=== PATIENT | female | born 1995 | race American Indian/Alaskan Native ===

== ENCOUNTER 2023-04-06 14:12 | Emergency (ER) | payer MEDICAID ==
[~2023-04-06] VITALS: Ht 157.5 cm; Wt 43.7 kg
[2023-04-06 14:28] VITALS: BP 116/54; PULSE 84; RESP 18; O2SAT 100
[2023-04-06] MEDS ORDERED: ONDANSETRON HCL 4 MG/2 ML VIAL IM ONE (14:30)
[2023-04-06] MEDS ORDERED: PROMETHAZINE HCL 25 MG/ML 1ML IM ONE (15:00)
[2023-04-06] MEDS ORDERED: SODIUM CHLORIDE 0.9% 2,000 ML IV ONE (15:00)
[2023-04-06 15:25] LABS: Basophils # (auto) 0 10 ^3/uL (0-0.2); Basophils % (auto) 0.5 % (0.0-2.0); Eosinophils # (auto) 0 10 ^3/uL (0-0.8); Eosinophils % (auto) 0.4 % (0.0-7.0); Hematocrit 38.4 % (36.0-46.0); Hemoglobin 13.3 g/dL (12.2-16.2); Lymphocytes # (auto) 2.2 10 ^3/uL (0.4-5.4); Lymphocytes % (auto) 23.5 % (10.0-50.0); Mean Corpuscular Hemoglobin 29.9 pg (28.0-32.0); Mean Corpuscular Hgb Conc. 34.5 g/dL (32.0-36.0); Mean Corpuscular Volume 86.6 fL (80.0-100.0); Monocytes # (auto) 0.8 10 ^3/uL (0-1.3); Monocytes % (auto) 8.2 % (0.0-12.0); Neutrophils # (auto) 6.4 10 ^3/uL (1.6-8.6); Neutrophils % (auto) 67.4 % (37.0-80.0); Red Blood Cells 4.44 10^6/uL (4.0-5.20); Red Cell Distribution Width 13.4 % (11.8-14.3); White Blood Cell 9.4 10^3/uL (4.4-10.8)
[2023-04-06 15:29] LABS: Urine Bacteria NONE SEEN /hpf (None Seen); Urine Blood Negative /uL (Negative); Urine Clarity HAZY (Clear); Urine Color Yellow (Yellow); Urine Mucus FEW (None Seen); Urine Protein, UAD TRACE (Negative); Urine Specific Gravity 1.022 (1.001-1.035); Urine WBC 13 /hpf (0 - 5)
[2023-04-06 15:45] LABS: Alanine Aminotransferase 14 U/L (7-40); Albumin 4.1 g/dL (3.2-4.8); Alkaline Phosphatase 33 U/L (46-116); Anion Gap 8 (5-15); Aspartate Aminotransferase 9 U/L (13-40); BUN/Creatinine Ratio 15.9 (10.0-20.0); Blood Urea Nitrogen 7 mg/dL (9-23); Calcium 9.3 mg/dL (8.5-10.1); Carbon Dioxide 22 mmol/L (20-30); Chloride 106 mmol/L (98-107); Glucose 109 mg/dL (74-106); Potassium 3.4 mmol/L (3.5-5.1); Sodium 136 mmol/L (136-145)
[2023-04-06 15:46] LABS: Bilirubin, Total 0.9 mg/dL (0.2-1.0); Total Protein 6.1 g/dL (5.7-8.2)
[2023-04-06] MEDS ORDERED: CEPHALEXIN 250 MG CAP PO ONE (16:30)
== END 2023-04-06 19:19 | disposition left against medical advice (07) ==
LOC: ER 14:12
DX: R11.2 Nausea with vomiting, unspecified (principal); R10.2 Pelvic and perineal pain; Z53.21 Procedure and treatment not carried out due to patient leaving prior to being seen by health care provider
CPT/HCPCS: 36415; 80053; 81001; 83605; 84702; 85025

== ENCOUNTER 2023-07-20 10:34 | Observation (INO) | payer MEDICAID ==
[2023-07-20 13:50] LABS: Vaginal Bacteria Moderate; Vaginal Epithelial Cells Moderate; Vaginal Trichomonas Not Present
[2023-07-20 13:51] LABS: Vaginal Clue Cells None Seen
[2023-07-20 14:03] LABS: Rapid Influenza A Negative (Negative); Rapid Influenza B Negative (Negative)
[2023-07-20 14:08] LABS: COVID19 ANTIGEN SOFIA FIA POSITIVE (NEGATIVE)
== END 2023-07-20 14:31 | disposition home or self-care (01) ==
LOC: LDRP 10:34 → UNDOADMOB 10:34 → LDRP 11:49
PROVIDERS: ADMIT Obstetrics & Gynecology; ATTEND Obstetrics & Gynecology
DX: O98.512 Other viral diseases complicating pregnancy, second trimester (principal); U07.1 COVID-19; O34.62 Maternal care for abnormality of vagina, second trimester; N89.8 Other specified noninflammatory disorders of vagina; Z3A.27 27 weeks gestation of pregnancy
CPT/HCPCS: 36415; 81002; 87210; 87426; 87804; 94760; G0378

== ENCOUNTER 2023-07-20 14:43 | Emergency (ER) | payer MEDICAID ==
[~2023-07-20] VITALS: Ht 157.5 cm; Wt 54.6 kg
[2023-07-20 15:37] VITALS: BP 131/79; PULSE 100; RESP 16; TEMP 99.8; O2SAT 97
== END 2023-07-20 15:41 | disposition home or self-care (01) ==
LOC: ER 14:46
DX: Z02.79 Encounter for issue of other medical certificate (principal); U07.1 COVID-19

== ENCOUNTER 2023-08-11 09:59 | Observation (INO) | payer MEDICAID ==
[~2023-08-11] VITALS: Ht 157.5 cm; Wt 54.4 kg
[2023-08-11] MEDS: ONDANSETRON HCL 4 MG/2 ML VIAL IV ONE (10:44)
[2023-08-11] MEDS: ceFAZolin 2 GM/D5W50ml 50 ML IV ONE (10:44)
[2023-08-11] MEDS: LACTATED RINGER'S 1,000 ML IV ONE (10:44)
[2023-08-11] MEDS ORDERED: PREN-96 PO (11:13)
[2023-08-11 11:20] VITALS: TEMP 99.7
[2023-08-11] MEDS: ACETAMINOPHEN 500 MG TAB PO ONE (11:20)
== END 2023-08-11 14:00 | disposition home or self-care (01) ==
LOC: LDRP 09:59
PROVIDERS: ADMIT Obstetrics & Gynecology; ATTEND Obstetrics & Gynecology
DX: O21.2 Late vomiting of pregnancy (principal); O26.893 Other specified pregnancy related conditions, third trimester; R19.7 Diarrhea, unspecified; R10.2 Pelvic and perineal pain; Z3A.30 30 weeks gestation of pregnancy; Z88.1 Allergy status to other antibiotic agents
CPT/HCPCS: 59025; 81002; 94760; 96365; 96375; G0378; J0690; J2405; 96360; 96361; 96374

== ENCOUNTER 2023-10-09 04:04 | Inpatient (IN) | payer MEDICAID ==
[~2023-10-09] VITALS: Ht 157.5 cm; Wt 65.8 kg
[~2023-10-09 04:04] MED LIST: PREN-96 PO
[2023-10-09] MEDS ORDERED: TERBUTALINE SULFATE 1 MG/ML 1ML VIAL SC PRN (04:45)
[2023-10-09] MEDS ORDERED: LIDOCAINE 2%HCL (LOCAL ANESTH.) INJ 20ML MDV IJ PRN (04:45)
[2023-10-09] MEDS ORDERED: LACT. RINGERS/OXYTOCIN 20UNITS 1,000 ML IV SCH (04:45)
[2023-10-09 05:18] LABS: Urine Bacteria FEW /hpf (None Seen); Urine Blood 1+ /uL (Negative); Urine Clarity Clear (Clear); Urine Color Colorless (Yellow); Urine Protein, UAD Negative (Negative); Urine Specific Gravity 1.011 (1.001-1.035); Urine Urobilinogen Normal (Negative); Urine WBC 1 /hpf (0 - 5)
[2023-10-09] MEDS: PHISODERM TOP SOLN 240ML BTL TOP PRN (05:18)
[2023-10-09] MEDS: DERMOPLAST 60ML BOTTLE TOP PRN (05:19)
[2023-10-09] MEDS: WITCH HAZEL-GLYCERIN PAD TOP PRN (05:19)
[2023-10-09 05:25] LABS: Basophils # (auto) 0 10 ^3/uL (0-0.2); Eosinophils # (auto) 0.1 10 ^3/uL (0-0.8); Eosinophils % (auto) 0.7 % (0.0-7.0); Hemoglobin 11.8 g/dL (12.2-16.2); White Blood Cell 12.6 10^3/uL (4.4-10.8)
[2023-10-09 05:27] LABS: Basophils % (auto) 0.3 % (0.0-2.0); Hematocrit 35.6 % (36.0-46.0); Lymphocytes # (auto) 1.9 10 ^3/uL (0.4-5.4); Lymphocytes % (auto) 15.3 % (10.0-50.0); Mean Corpuscular Hemoglobin 26.3 pg (28.0-32.0); Mean Corpuscular Volume 79.8 fL (80.0-100.0); Monocytes # (auto) 1.2 10 ^3/uL (0-1.3); Monocytes % (auto) 9.2 % (0.0-12.0); Neutrophils # (auto) 9.4 10 ^3/uL (1.6-8.6); Neutrophils % (auto) 74.5 % (37.0-80.0); Platelet Count (auto) 231 10^3/uL (140-450); Red Blood Cells 4.46 10^6/uL (4.0-5.20); Red Cell Distribution Width 15.4 % (11.8-14.3)
[2023-10-09] MEDS: LACTATED RINGER'S 1,000 ML IV SCH (05:29)
[2023-10-09 05:39] LABS: Amphetamine Screen, Urine Neg (NEGATIVE); Barbiturate Scree,Urine Neg (NEGATIVE); Benzodiazephine Screen, Urine Neg (NEGATIVE); Cannabinoid Screen, Urine Neg (NEGATIVE); Cocaine Screen, Urine Neg (NEGATIVE); Opiate Scree,Urine Neg (NEGATIVE); Phencyclidine Screen, Urine Neg (NEGATIVE)
[2023-10-09 05:42] LABS: INR 0.87 (0.9-1.15); Partial Thromboplastin Time 25.6 SEC (24.5-34.5); Prothrombin Time 9.3 sec (9.3-11.8)
[2023-10-09 05:43] LABS: Alanine Aminotransferase 13 U/L (7-40); Albumin 3.6 g/dL (3.2-4.8); Alkaline Phosphatase 188 U/L (46-116); Anion Gap 6 (5-15); Aspartate Aminotransferase 14 U/L (13-40); Bilirubin, Total 0.4 mg/dL (0.2-1.0); Blood Urea Nitrogen 8 mg/dL (9-23); Calcium 8.7 mg/dL (8.7-10.4); Carbon Dioxide 21 mmol/L (20-30); Chloride 110 mmol/L (98-107); Glucose 82 mg/dL (74-106); Sodium 137 mmol/L (136-145); Total Protein 6.5 g/dL (5.7-8.2)
[2023-10-09] MEDS ORDERED: ePHEDrine SULFATE 50 MG/ML AMP IV ONE (07:30)
[2023-10-09] MEDS ORDERED: NALOXONE HCL 0.4 MG/ML VIAL IV ONE (07:30)
[2023-10-09] MEDS: LACTATED RINGER'S 1,000 ML IV ONE (07:45)
[2023-10-09] MEDS: ePHEDrine SULFATE 50 MG/ML AMP ONE (07:46)
[2023-10-09] MEDS: fentaNYL CITRATE 100 MCG/2 ML VL ONE (07:46)
[2023-10-09 13:26] LABS: Protein, Urine 7.8 mg/dL (0.0-11.9)
[2023-10-09 13:28] LABS: Creatinine, Urine 20.02 mg/dL (30.0-125.0); Urine Protein/Creatinine Ratio 0.39
[2023-10-09] MEDS: fentaNYL CITRATE 100 MCG/2 ML VL IV ONE (13:49)
[2023-10-09] MEDS: ROPIVACAINE HCL 200 ML ONE (13:50)
[2023-10-09] MEDS ORDERED: ONDANSETRON ODT 4 MG TAB PO PRN (15:15)
[2023-10-09] MEDS: LACT. RINGERS/OXYTOCIN 20UNITS 500 ML IV ONE ×2 (15:36→15:37)
[2023-10-09] MEDS: ACETAMINOPHEN 325 MG TAB PO PRN (15:56)
[2023-10-09 19:30] VITALS: BP 122/71; PULSE 99; RESP 16; TEMP 98.7; O2SAT 100
[2023-10-09 22:12] LABS: Basophils # (auto) 0.2 10 ^3/uL (0-0.2); Eosinophils # (auto) 0 10 ^3/uL (0-0.8); Eosinophils % (auto) 0.1 % (0.0-7.0); Hematocrit 34.1 % (36.0-46.0); Lymphocytes # (auto) 1.5 10 ^3/uL (0.4-5.4); Lymphocytes % (auto) 8.6 % (10.0-50.0); Mean Corpuscular Hemoglobin 25.8 pg (28.0-32.0); Mean Corpuscular Hgb Conc. 32.2 g/dL (32.0-36.0); Monocytes # (auto) 1.3 10 ^3/uL (0-1.3); Monocytes % (auto) 7.5 % (0.0-12.0); Neutrophils # (auto) 14.6 10 ^3/uL (1.6-8.6); Neutrophils % (auto) 82.8 % (37.0-80.0); Nucleated Red Blood Cells % 0.1 %; Platelet Count (auto) 193 10^3/uL (140-450); Red Blood Cells 4.27 10^6/uL (4.0-5.20); Red Cell Distribution Width 15.5 % (11.8-14.3); White Blood Cell 17.6 10^3/uL (4.4-10.8)
[2023-10-09 23:00] VITALS: BP 123/78; PULSE 88; RESP 16; TEMP 97.8; O2SAT 97
[2023-10-09] MEDS: DOCUSATE SOD 100 MG CAP PO SCH (23:02)
[2023-10-10] MEDS ORDERED: DOCU-265 PO (00:13)
[2023-10-10] MEDS ORDERED: IBU600T PO (00:13)
[2023-10-10] MEDS: IBUPROFEN 600 MG TAB PO PRN (02:09)
[2023-10-10 03:00] VITALS: BP 117/82; PULSE 75; RESP 16; TEMP 98.1; O2SAT 97
[2023-10-10 06:30] VITALS: BP 130/82; PULSE 79; RESP 20; TEMP 97.8; O2SAT 97
[2023-10-10 07:06] LABS: RPR Non Reactive (Non Reactive)
[2023-10-10 10:30] VITALS: BP 136/85; PULSE 79; RESP 18; TEMP 99; O2SAT 97
[2023-10-10 15:30] VITALS: BP 123/82; PULSE 103; RESP 18; TEMP 99.1; O2SAT 95
[2023-10-11 08:06] LABS: Thyroid Peroxidase (TPO) Ab 15 IU/mL (0-34)
== END 2023-10-10 18:13 | disposition home or self-care (01) | DRG 560 ==
LOC: LDRP 04:04 → OBSVTOIN 04:38 → LDRP 04:44
PROVIDERS: ADMIT Obstetrics & Gynecology; ATTEND Obstetrics & Gynecology
PROC: 10E0XZZ Delivery of Products of Conception, External Approach (ICD-10-PCS; principal; 2023-10-09)
PROC: 0HQ9XZZ Repair Perineum Skin, External Approach (ICD-10-PCS; 2023-10-09)
PROC: 3E033VJ Introduction of Other Hormone into Peripheral Vein, Percutaneous Approach (ICD-10-PCS; 2023-10-09)
PROC: 3E0R3BZ Introduction of Anesthetic Agent into Spinal Canal, Percutaneous Approach (ICD-10-PCS; 2023-10-09)
PROC: 00HU33Z Insertion of Infusion Device into Spinal Canal, Percutaneous Approach (ICD-10-PCS; 2023-10-09)
DX: O70.0 First degree perineal laceration during delivery (principal); Z37.0 Single live birth; O14.95 Unspecified pre-eclampsia, complicating the puerperium; Z3A.38 38 weeks gestation of pregnancy; Z88.1 Allergy status to other antibiotic agents
CPT/HCPCS: 36415; 59025; 59409; 62282; 80053; 80307; 81001; 82570; 84156; 84439; 84443; 85025; 85610; 85730; 86376; 86592; 86800; 86803; 86850; 86900; 86901; 94760; 96360; 96361; G0378; J2590

== ENCOUNTER 2024-01-21 23:34 | Emergency (ER) | payer MEDICAID ==
[~2024-01-21] VITALS: Ht 157.5 cm; Wt 63.6 kg
[~2024-01-21 23:34] MED LIST changes: +DOCU-265 PO; +IBU600T PO
[2024-01-22 00:35] VITALS: BP 135/90; PULSE 90; RESP 16; O2SAT 97
[2024-01-22 00:43] LABS: Urine Bacteria None Seen /hpf (None Seen)
[2024-01-22 00:48] LABS: Urine Blood 1+ /uL (Negative); Urine Clarity Clear (Clear); Urine Color Colorless (Yellow); Urine Protein, UAD Negative (Negative); Urine Specific Gravity 1.002 (1.001-1.035); Urine Urobilinogen Normal (Negative); Urine WBC <1 /hpf (0 - 5); Urine pH 6.5 (5.0-9.0)
[2024-01-22] MEDS ORDERED: CEPH250C PO (01:25)
--- NOTE | 2024-01-22 01:26 | ED.PDOC ---
General HPI Comments 28F at 9weeks by lmp presents with one day of dysuria and achy nonradiating lower back pain. Chief Complaint: Urinary Time Seen by MD: 00:11 Primary Care Provider: UNKNOWN Allergies: Coded Allergies: Doxycycline (Verified Allergy, Unknown, 08/11/23) Home Meds Active Scripts Ibuprofen Micronized (MOTRIN TABLET) 600 Mg Tb, 600 MG PO Q6HP PRN for 20 Days, #80 TAB Prov:RICH DANIELSON [facility] 10/10/23 Docusate Sodium (Docusate Sodium) 100 Mg Cap, 200 MG PO HS PRN for 30 Days, #60 CAP 2 Refills Prov:RICH DANIELSON [facility] 10/10/23 Reported Medications Vit W/ Ferrous Fumara ( One Daily) Daily Tab, 1 TAB PO DAILY, #90 TAB 3 Refills 08/11/23 Mode of Arrival: Ambulatory Past Medical History PAST MEDICAL HISTORY: Denies Surgical History: Denies all surgeries HAUNTED HISTORY TOUR GUIDE History: Denies all HAUNTED HISTORY TOUR GUIDE Hx Family History Family History: Reviewed,noncontributory to illness, No family hx of DM Social History Smoker: Non-Smoker Alcohol: Denies ETOH Use Drugs: Denies Drug Use Lives In: Home Physical Exam General Appearance: No Apparent Distress, Normal HEENT: Normal ENT Inspection, Pharynx Normal, TMs Normal Neck: Full Range of Motion, Non-Tender, Normal, Normal Inspection Respiratory: Chest Non-Tender, Lungs Clear, No Accessory Muscle Use, No Respiratory Distress, Normal Breath Sounds Cardiovascular: No Edema, No JVD, No Murmur, No Gallop, Normal Peripheral Pulses, Regular Rate/Rhythm Breast Exam: Deferred Gastrointestinal: No Organomegaly, Non Tender, No Pulsatile Mass, Normal Bowel Sounds, Soft Genitalia: Deferred Pelvic: Deferred Rectal: Deferred Extremities: No calf tenderness, Normal capillary refill, Normal inspection, Normal range of motion, Non-tender, No pedal edema Musculoskeletal : Apperance: Normal Neurologic: Alert, senior copywriter II-XII nml as Tested, No Motor Deficits, Normal Affect, Normal Mood, No Sensory Deficits Cerebellar Function: NOT DONE Reflexes: NOT DONE Skin: Dry, Normal Color, Warm Lymphatic: No Adenopathy Was a procedure done? Was a procedure done?: No Differential Diagnosis Kidney stone (Female): N/A Kidney stone (Male): N/A Penile/Scrotal: N/A Urinary Problem (Male): N/A Urinary Problem (Female): Pyelonephritis, Urinary retention, Urolithiasis, UTI X-Ray, Labs, Meds, VS Vital Signs Date Time Temp Pulse Resp B/P (MAP) Pulse Ox O2 Delivery O2 Flow Rate FiO2 01/22/24 00:35 98.6 90 16 135/90 (105) 97 Lab Test 01/22/24 00:43 Range/Units Urine Color Colorless Yellow Urine Clarity Clear Clear Urine pH 6.5 5.0-9.0 Urine Specific [place] 1.002 1.001-1.035 Urine Protein Negative Negative Urine Ketones Negative Negative Urine Blood 1+ H Negative /uL Urine Nitrite Negative Negative Urine Bilirubin Negative Negative Urine Urobilinogen Normal Negative mg/dL Urine Leukocyte Esterase Negative Negative /uL Urine RBC 3 0 - 4 /hpf Urine WBC <1 0 - 5 /hpf Urine Squamous Epithelial Cells Few <5 /hpf Urine Bacteria None seen None Seen /hpf Urine Glucose Normal Normal mg/dL Time of 1ST Reevaluation: 01:23 Reevaluation 1ST: Unchanged Patient Education/Counseling: Diagnosis, Treatment Family Education/Counseling: No Family Present Departure 1 Departure Time of Disposition: 01:23 (Patient has dysuria and some white cells concerning for a uti. Will start patient on antibiotics and have her follow up as an outpatient. ) Impression: Primary Impression: UTI (urinary tract infection) Qualified Codes: N30.00 - Acute cystitis without hematuria Additional Impression: Qualified Codes: Z3A.09 - 9 weeks gestation of Disposition: HOME / SELF CARE / HOMELESS Condition: Stable Additional Instructions: You have a urinary tract infection. Your prescribed antibiotics. Please take as directed. You can take Tylenol as needed for pain. It is important that he follow up with the regular doctor within 1 week to ens ure you are doing better. If your symptoms worsen or you have any other concerns then please return to the emergency room. e-Prescriptions Cephalexin (KEFLEX CAPSULE) 250 Mg Cp 250 MG PO QID for 5 Days, #20 CAP Prov: LAUREN PINK MD 01/22/24 Discharged With: Self Critical Care Note Critical Care Time?: No Stability Stability form required: No Heart Score Heart Score: Heart Score Response (Comments) Value History N/A 0 EKG N/A 0 Age N/A 0 Risk Factors N/A 0 Troponin N/A 0 Total 0 LAUREN PINK MD Jan 22, 2024 01:25
[2024-01-22] MEDS: CEPHALEXIN 250 MG CAP PO ONE (01:30)
== END 2024-01-22 02:21 | disposition home or self-care (01) ==
LOC: ER 23:34
DX: O23.41 Unspecified infection of urinary tract in pregnancy, first trimester (principal); Z3A.09 9 weeks gestation of pregnancy; Z88.1 Allergy status to other antibiotic agents; Z79.899 Other long term (current) drug therapy
CPT/HCPCS: 81001

== ENCOUNTER 2024-05-26 15:33 | Observation (INO) | payer MEDICAID ==
[~2024-05-26] VITALS: Ht 157.5 cm; Wt 56.7 kg
[~2024-05-26 15:33] MED LIST changes: +CEPH250C PO
[2024-05-26 16:51] LABS: Mean Corpuscular Hgb Conc. 32.5 g/dL (32.0-36.0); Red Blood Cells 4.39 10^6/uL (4.0-5.20)
[2024-05-26 16:53] LABS: Hematocrit 35.6 % (36.0-46.0); Hemoglobin 11.6 g/dL (12.2-16.2); Mean Corpuscular Hemoglobin 26.4 pg (28.0-32.0); Mean Corpuscular Volume 81.1 fL (80.0-100.0); Platelet Count (auto) 290 10^3/uL (140-450)
[2024-05-26 16:57] LABS: Basophils % (manual) 0 (0.0-2.0); Blast Cells 0; Eosinophils % (manual) 0 (0-7); Metamyelocytes % 0; Myelocytes % 0; Promyelocytes % 0; Reactive Lymphocytes 0
[2024-05-26 17:05] LABS: Protein, Urine 10.3 mg/dL (1-14)
[2024-05-26 17:08] LABS: Creatinine, Urine 43.31 mg/dL (30.0-125.0); Urine Protein/Creatinine Ratio 0.24
[2024-05-26 17:12] LABS: Albumin 3.8 g/dL (3.2-4.8); Alkaline Phosphatase 76 U/L (46-116); BUN/Creatinine Ratio 15.8 (10.0-20.0); Bilirubin, Total 0.4 mg/dL (0.2-1.0); Blood Urea Nitrogen 9 mg/dL (9-23); Calcium 9.2 mg/dL (8.7-10.4); Chloride 106 mmol/L (98-107); Sodium 136 mmol/L (136-145); Total Protein 6.6 g/dL (5.7-8.2); Uric Acid 3.1 mg/dL (3.1-7.8)
[2024-05-26 17:14] LABS: Alanine Aminotransferase < 9 U/L (7-40); Aspartate Aminotransferase 10 U/L (13-40); Glucose 74 mg/dL (74-106)
[2024-05-26 17:18] LABS: Anion Gap 8 (5-15); Carbon Dioxide 22 mmol/L (20-31)
[2024-05-26 17:22] LABS: INR 0.92 (0.9-1.15); Partial Thromboplastin Time 25.7 SEC (24.5-34.5); Prothrombin Time 9.8 sec (9.3-11.8)
[2024-05-26 20:06] LABS: Band Neutrophils % (manual) 2; Lymphocytes % (manual) 19 (10.0-50.0); Monocytes % (manual) 9 (0-12); Platelet Estimate Adequate
--- NOTE | 2024-05-27 11:34 | DVHDS2 ---
Physician Discharge Progress N Final Diagnosis: pih 27wks ruled out Operations or Procedures: Operations or Procedures nst,sono Condition on Discharge: Good Disposition: Home Discharge Instructions: Diet: Regular Activity: Light activity Medications: na Follow Up Care: Specialist: 1w Discharge Statement: "Patient was advised to return to the ER or call 911 if any headaches, dizziness, shortness of breath, chest pain, abdominal pain, bleeding, fevers, or worsening of medical condition. Patient was counseled about treatment plan, medications, possible side effects, patientverbalized understanding. All questions were answered to the best of my ability. This discharge took greater then 30 minutes in planning, reviewing documentation, counseling the patient, and discussing with other team members." Visit Coding OBGYN Date of Service: May 26, 2024 Billing Provider: SAKINA FUENTES DO DELIVERY AIDE Common Visit Codes: 22947-[id number] INP/OBS CARE (HIGH) DELIVERY AIDE Procedure Codes: 17134-49- NON-STRESS TEST SAKINA FUENTES DO May 27, 2024 11:34
== END 2024-05-26 17:25 | disposition home or self-care (01) ==
LOC: LDRP 15:33 → MERGE 15:33 → UNDOADMOB 15:33 → EDBD 15:33 → LDRP 16:18 → UNDODISOB 17:25
PROVIDERS: ADMIT Obstetrics & Gynecology; ATTEND Obstetrics & Gynecology
DX: Z34.92 Encounter for supervision of normal pregnancy, unspecified, second trimester (principal); Z98.890 Other specified postprocedural states; Z79.899 Other long term (current) drug therapy; Z3A.27 27 weeks gestation of pregnancy
CPT/HCPCS: 36415; 80053; 81002; 82570; 84156; 84550; 85007; 85027; 85610; 85730; 94760; G0378

== ENCOUNTER 2024-07-11 01:18 | Observation (INO) | payer MEDICAID ==
[~2024-07-11] VITALS: Ht 157.5 cm; Wt 70.8 kg
[2024-07-11 13:16] LABS: Protein, Urine 54.9 mg/dL (1-14); Urine Bacteria FEW /hpf (None Seen); Urine Blood Negative /uL (Negative); Urine Clarity Turbid (Clear); Urine Color Yellow (Yellow); Urine Mucus FEW (None Seen); Urine Protein, UAD 1+ (Negative); Urine Specific Gravity 1.021 (1.001-1.035); Urine Squamous Epithelial Cell FEW /hpf (<5); Urine Urobilinogen 2 mg/dL (Negative); Urine WBC 5 /HPF (0-5); Urine pH 6.5 (5.0-9.0)
[2024-07-11 13:19] LABS: Creatinine, Urine 114.65 mg/dL (30.0-125.0); Urine Protein/Creatinine Ratio 0.48
[2024-07-11 13:22] LABS: Alanine Aminotransferase 10 U/L (7-40); Albumin 3.7 g/dL (3.2-4.8); Anion Gap 9 (5-15); BUN/Creatinine Ratio 11.3 (10.0-20.0); Bilirubin, Total 0.4 mg/dL (0.2-1.0); Calcium 8.8 mg/dL (8.7-10.4); Carbon Dioxide 22 mmol/L (20-31); Potassium 3.7 mmol/L (3.5-5.1); Sodium 140 mmol/L (136-145); Total Protein 6.3 g/dL (5.7-8.2); Uric Acid 3.2 mg/dL (3.1-7.8)
[2024-07-11 13:24] LABS: Alkaline Phosphatase 119 U/L (46-116); Aspartate Aminotransferase 10 U/L (13-40); Blood Urea Nitrogen 6 mg/dL (9-23); Chloride 109 mmol/L (98-107); Glucose 113 mg/dL (74-106)
[2024-07-11 13:28] LABS: INR 0.9 (0.9-1.15); Partial Thromboplastin Time 26.7 SEC (24.5-34.5); Prothrombin Time 9.6 sec (9.3-11.8)
[2024-07-11 13:34] LABS: Basophils # (auto) 0 10 ^3/uL (0-0.2); Eosinophils # (auto) 0.1 10 ^3/uL (0-0.8); Monocytes # (auto) 1.1 10 ^3/uL (0-1.3)
[2024-07-11 13:35] LABS: Basophils % (auto) 0.3 % (0.0-2.0); Eosinophils % (auto) 0.9 % (0.0-7.0); Hematocrit 36.1 % (36.0-46.0); Hemoglobin 11.8 g/dL (12.2-16.2); Lymphocytes # (auto) 1.9 10 ^3/uL (0.4-5.4); Lymphocytes % (auto) 17.5 % (10.0-50.0); Mean Corpuscular Hemoglobin 25.6 pg (28.0-32.0); Mean Corpuscular Hgb Conc. 32.7 g/dL (32.0-36.0); Mean Corpuscular Volume 78.2 fL (80.0-100.0); Monocytes % (auto) 9.8 % (0.0-12.0); Neutrophils # (auto) 7.9 10 ^3/uL (1.6-8.6); Neutrophils % (auto) 71.5 % (37.0-80.0); Platelet Count (auto) 270 10^3/uL (140-450); Red Blood Cells 4.61 10^6/uL (4.0-5.20); Red Cell Distribution Width 16.5 % (11.8-14.3)
[2024-07-11] MEDS ORDERED: TERBUTALINE SULFATE 1 MG/ML 1ML VIAL SC ONE (13:37)
[2024-07-11] MEDS: TERBUTALINE SULFATE 1 MG/ML 1ML VIAL SC SCH (13:39)
[2024-07-11 14:01] LABS: Opiate Scree,Urine Neg (NEGATIVE)
[2024-07-11 14:02] LABS: Amphetamine Screen, Urine Neg (NEGATIVE); Barbiturate Scree,Urine Neg (NEGATIVE); Benzodiazephine Screen, Urine Neg (NEGATIVE); Cannabinoid Screen, Urine Neg (NEGATIVE); Cocaine Screen, Urine Neg (NEGATIVE); Phencyclidine Screen, Urine Neg (NEGATIVE)
--- NOTE | 2024-07-11 14:11 | DVHDS2 ---
Physician Discharge Progress N Final Diagnosis: PIH 32WKS,S/P FALL Operations or Procedures: Operations or Procedures NST REACTIVE REVIEWED,SONO Other Interventions Other Interventions RETURN TO LDRP WITH 24HR URINE IN 2 DAYS Condition on Discharge: Good Disposition: Discharge Instructions: Diet: Regular Activity: Light activity Medications: LABETOLOL Follow Up Care: Specialist: TO ER Discharge Statement: "Patient was advised to return to the ER or call 911 if any headaches, dizziness, shortness of breath, chest pain, abdominal pain, bleeding, fevers, or worsening of medical condition. Patient was counseled about treatment plan, medications, possible side effects, patientverbalized understanding. All questions were answered to the best of my ability. This discharge took greater then 30 minutes in planning, reviewing documentation, counseling the patient, and discussing with other team members." Visit Coding OBGYN Date of Service: July 11, 2024 Billing Provider: SAKINA FUENTES DO PARKING REGULATION ENFORCEMENT OFFICER Common Visit Codes: 71859-[id number] OBS CARE (HIGH) PARKING REGULATION ENFORCEMENT OFFICER Procedure Codes: 12220-97- NON-STRESS TEST SAKINA FUENTES DO July 11, 2024 14:11
[2024-07-11] MEDS: LABETALOL HCL 200 MG TAB PO ONE (14:31)
[2024-07-11] MEDS ORDERED: LABE100T7 PO (15:21)
--- NOTE | 2024-07-11 15:31 | DVH ---
CLINICAL HISTORY: -induced hypertension. COMPARISON: Prior ultrasound dated 04/22/2023. TECHNIQUE: biophysical profile was performed. Transabdominal sonographic images of the fetus we re obtained. Transvaginal examination was also performed to evaluate the cervix. FINDINGS: The fetus is in cephalic position. heart rate measures 159 BPM. Amniotic fluid index measures 9.6 cm. The placenta is anterior in position. Cervix measures 3.4 cm in length and appears c losed. Nabothian cyst in the cervix. Possible nuchal cord X 1. Anechoic, cystic appearing structure a long the margin of the placenta measuring up to 3.0 x 1.5 x 5.5 cm, possible placental dyer. BPP profile is an overall score of 8/8, with 2/2 points for breathing, with at least one episode of breathing over a 30 second duration during a 30 minute observation, 2/2 points for m ovements, with 3 or more discrete body or limb movements, 2/2 points for tone, with one or more episodes of extremity extension with return to flexion, or opening and closing of hand, and 2/ 2 points for amniotic fluid, with at least 1 pocket of amniotic fluid that measures 2 cm in 2 perpend icular planes. IMPRESSION: 1. BPP score of 8/8. 2. Possible nuchal cord. 3. Cystic appearing structure along the margin of the placenta, possible prominent placental dyer alexa suring up to 3.0 x 1.5 x 5.5 cm. 4. Cervix is closed and measures up to 3.4 cm in length.
== END 2024-07-11 15:31 | disposition home or self-care (01) ==
LOC: LDRP 12:34
PROVIDERS: ADMIT Obstetrics & Gynecology; ATTEND Obstetrics & Gynecology
DX: O13.3 Gestational [pregnancy-induced] hypertension without significant proteinuria, third trimester (principal); Z3A.32 32 weeks gestation of pregnancy; Z79.899 Other long term (current) drug therapy; Z88.5 Allergy status to narcotic agent; W19.XXXA Unspecified fall, initial encounter; Y93.89 Activity, other specified; Y92.89 Other specified places as the place of occurrence of the external cause; Y99.8 Other external cause status
CPT/HCPCS: 36415; 59025; 76817; 76819; 80053; 80307; 81001; 81002; 82570; 84156; 84550; 85025; 85610; 85730; 94760; 96372; G0378; J3105

== ENCOUNTER 2024-07-13 12:15 | Observation (INO) | payer MEDICAID ==
[~2024-07-13] VITALS: Ht 165.1 cm; Wt 70.3 kg
[~2024-07-13 12:15] MED LIST changes: +LABE100T7 PO
--- NOTE | 2024-07-13 13:30 | DVH ---
BIOPHYSICAL PROFILE HISTORY: hx- Pre-E TECHNIQUE: Multiple transabdominal real-time grayscale sonographic images through the gravid uterus o f the fetus with duplex doppler color flow and M-mode spectral analysis FINDINGS: BIOPHYSICAL PROFILE: breathing score: 2 movement score: 2 tone score: 2 Quantitative DEVON score: 2 (DEVON: 9.6 cm.) Total score: 8/8 Single live fetus in cephalic presentation. heart rate 153 beats per minute. Anterior placenta without previa or abruption Biophysical profile score 8/8 corresponding to an KEVIN of 08/19/24 IMPRESSION: Biophysical profile score: 8/8 A placenta dyer and nuchal cord is seen similar to prior.
[2024-07-13 13:34] LABS: Urine Bacteria None Seen /hpf (None Seen)
[2024-07-13 13:50] LABS: Urine Blood Negative /uL (Negative); Urine Clarity Clear (Clear); Urine Color Light-Yellow (Yellow); Urine Mucus FEW (None Seen); Urine Protein, UAD Negative (Negative); Urine Specific Gravity 1.014 (1.001-1.035); Urine Squamous Epithelial Cell FEW /hpf (<5); Urine Urobilinogen Normal (Negative); Urine WBC 2 /HPF (0-5)
[2024-07-13 14:03] LABS: Protein, Urine 25.9 mg/dL (1-14)
[2024-07-13 14:06] LABS: Creatinine, Urine 71.38 mg/dL (30.0-125.0); Urine Protein/Creatinine Ratio 0.36
[2024-07-13 14:51] LABS: Protein, Urine 13.7 mg/dL (1-14)
[2024-07-13 14:52] LABS: 24 Hr. Total Protein, Urine 138.3 mg/24 Hr (<149.1)
--- NOTE | 2024-07-14 06:11 | DVHDS2 ---
Discharge Summary Date of Admission July 13, 2024 at 12:15 Date of Discharge: July 13, 2024 Admitting Diagnosis Thirty-four weeks who for evaluation with signs of PH although today reassuring blood pressure control heart tones reassuring on NST Labs/Diagnostic Data: Laboratory Results Test 07/13/24 12:38 Urine Color Light-yellow (Yellow) Urine Clarity Clear (Clear) Urine pH 7.0 (5.0-9.0) Urine Specific [place] 1.014 (1.001-1.035) Urine Protein Negative (Negative) Urine Ketones Negative (Negative) Urine Blood Negative /uL (Negative) Urine Nitrite Negative (Negative) Urine Bilirubin Negative (Negative) Urine Urobilinogen Normal mg/dL (Negative) Urine Leukocyte Esterase Trace /uL (Negative) Urine RBC 1 /hpf (0 - 4) Urine Microscopic WBC 2 /HPF (0-5) Urine Squamous Epithelial Cells Few /hpf (<5) Urine Bacteria None seen /hpf (None Seen) Urine Mucus Few (None Seen) Urine Creatinine 71.38 mg/dL (30.0-125.0) Urine Total Protein 24 Hour 138.3 mg/24 Hr (<149.1) Urine Protein/Creatinine Ratio 0.36 Urine Glucose 2+ mg/dL (Normal) Urine Total Protein 13.7 mg/dL (1-14) Brief Hx & Hospital Course: Patient has good care being followed by her primary refer blood pressure check NST Condition at Discharge: Good Final Diagnosis/Problems List super imposed PIH reasuring parameters 34 + weeks Discharge Disposition: Home Discharge Instruct/Medications Diet: Regular Activity: Light activity Discharge Statement: "Patient was advised to return to the ER or call 911 if any headaches, dizziness, shortness of breath, chest pain, abdominal pain, bleeding, fevers, or worsening of medical condition. Patient was counseled about treatment plan, medications, possible side effects, patientverbalized understanding. All questions were answered to the best of my ability. This discharge took greater then 30 minutes in planning, reviewing documentation, counseling the patient, and discussing with other team members." ASSESSMENT ASSESSMENT Assessment Visit Coding OBGYN Date of Service: July 13, 2024 Billing Provider: KILO GRAHAM DO DELIVERY CLERK Common Visit Codes: 44479-PWW/OBS SAME DATE (LOW), 75690-CLB/OBS SAME DATE (MOD), 40652-NMR/OBS SAME DATE (HIGH) DELIVERY CLERK Procedure Codes: 56265-23- NON-STRESS TEST KILO GRAHAM DO July 14, 2024 06:10
== END 2024-07-13 14:41 | disposition home or self-care (01) ==
LOC: LDRP 12:15
PROVIDERS: ADMIT Obstetrics & Gynecology; ATTEND Obstetrics & Gynecology
DX: O13.3 Gestational [pregnancy-induced] hypertension without significant proteinuria, third trimester (principal); Z3A.34 34 weeks gestation of pregnancy; Z79.899 Other long term (current) drug therapy
CPT/HCPCS: 59025; 76819; 81001; 81002; 82570; 84156; 94760; G0378

== ENCOUNTER 2024-07-16 08:33 | Observation (INO) | payer MEDICAID ==
[2024-07-18 13:30] LABS: Hemoglobin 11.2 g/dL (12.2-16.2)
[2024-07-18 13:32] LABS: Hematocrit 33.2 % (36.0-46.0); Mean Corpuscular Hemoglobin 25.9 pg (28.0-32.0); Mean Corpuscular Hgb Conc. 33.8 g/dL (32.0-36.0); Mean Corpuscular Volume 76.8 fL (80.0-100.0); Platelet Count (auto) 254 10^3/uL (140-450); Red Blood Cells 4.32 10^6/uL (4.0-5.20); Red Cell Distribution Width 16.2 % (11.8-14.3); White Blood Cell 10.8 10^3/uL (4.4-10.8)
[2024-07-18 13:35] LABS: Basophils % (manual) 0 (0.0-2.0); Blast Cells 0; Myelocytes % 0; Promyelocytes % 0; Reactive Lymphocytes 0
--- NOTE | 2024-07-18 13:39 | DVH ---
BIOPHYSICAL PROFILE HISTORY: PIH Comparison Study: US BIOPHYSICAL PROFILE on DOS: 07/13/24, US BIOPHYSICAL PROFILE on DOS: 07/11/24 TECHNIQUE: Multiple real-time grayscale sonographic images through the gravid uterus of the fetus wi th duplex Doppler color flow and M-mode spectral analysis FINDINGS: BIOPHYSICAL PROFILE: breathing score: 2 movement score: 2 tone score: 2 Quantitative DEVON score: 2 (DEVON: 13 Cm.) Total score: 8 The cervix is not visualized Single live fetus in cephalic presentation. heart rate 134 beats per minute. Anterior placenta without previa or abruption. Venous placental dyer is present measuring 4.7 cm. Positive nuchal cord. IMPRESSION: Biophysical profile score: 8 Positive nuchal cord. Anterior placenta without previa or abruption. Venous placental dyer is present measuring 4.7 cm.
[2024-07-18 13:41] LABS: Anisocytosis Slight; Band Neutrophils % (manual) 3; Eosinophils % (manual) 1 (0-7); Lymphocytes % (manual) 18 (10.0-50.0); Metamyelocytes % 1; Monocytes % (manual) 9 (0-12); Platelet Estimate Adequate
[2024-07-18 13:45] LABS: INR 0.9 (0.9-1.15); Partial Thromboplastin Time 25.4 SEC (24.5-34.5); Prothrombin Time 9.6 sec (9.3-11.8)
[2024-07-18 13:48] LABS: Alanine Aminotransferase 11 U/L (7-40); Albumin 3.8 g/dL (3.2-4.8); Anion Gap 9 (5-15); Aspartate Aminotransferase 14 U/L (13-40); BUN/Creatinine Ratio 15.2 (10.0-20.0); Carbon Dioxide 21 mmol/L (20-31); Glucose 79 mg/dL (74-106); Potassium 3.5 mmol/L (3.5-5.1); Sodium 138 mmol/L (136-145); Total Protein 6.3 g/dL (5.7-8.2); Uric Acid 3.7 mg/dL (3.1-7.8)
[2024-07-18 13:49] LABS: Alkaline Phosphatase 123 U/L (46-116); Bilirubin, Total 0.4 mg/dL (0.2-1.0); Blood Urea Nitrogen 7 mg/dL (9-23); Calcium 8.5 mg/dL (8.7-10.4); Chloride 108 mmol/L (98-107)
[2024-07-18 14:00] LABS: Urine Bacteria FEW /hpf (None Seen); Urine Blood Negative /uL (Negative); Urine Clarity Clear (Clear); Urine Color Light-Yellow (Yellow); Urine Protein, UAD TRACE (Negative); Urine Specific Gravity 1.016 (1.001-1.035); Urine Squamous Epithelial Cell FEW /hpf (<5); Urine Urobilinogen Normal (Negative); Urine WBC 2 /HPF (0-5); Urine pH 6.5 (5.0-9.0)
[2024-07-18 14:10] LABS: Protein, Urine 23.9 mg/dL (1-14)
[2024-07-18 14:13] LABS: Creatinine, Urine 74.01 mg/dL (30.0-125.0); Urine Protein/Creatinine Ratio 0.32
--- NOTE | 2024-07-18 22:37 | DVHDS2 ---
Physician Discharge Progress N Final Diagnosis: gdm Operations or Procedures: Operations or Procedures nst reactive reviwed Condition on Discharge: Good Disposition: Home Discharge Instructions: Diet: Regular Activity: Light activity Medications: na Follow Up Care: Specialist: 3d Discharge Statement: "Patient was advised to return to the ER or call 911 if any headaches, di zziness, shortness of breath, chest pain, abdominal pain, bleeding, fevers, or worsening of medical condition. Patient was counseled about treatment plan, medications, possible side effects, patientverbalized understanding. All questions were answered to the best of my ability. This discharge took greater then 30 minutes in planning, reviewing documentation, counseling the patient, and discussing with other team members." Visit Coding OBGYN Date of Service: July 17, 2024 Billing Provider: SAKINA FUENTES DO SOFTWARE RELEASE ENGINEER Common Visit Codes: 97572-[id number] OBS CARE (HIGH) SOFTWARE RELEASE ENGINEER Procedure Codes: 40733-80- NON-STRESS TEST SAKINA FUENTES DO July 18, 2024 22:37
== END 2024-07-18 14:50 | disposition home or self-care (01) ==
LOC: LDRP 07-18 12:35 → UNDOADMOB 07-18 12:35 → LDRP 07-18 12:46
PROVIDERS: ADMIT Obstetrics & Gynecology; ATTEND Obstetrics & Gynecology
DX: O24.419 Gestational diabetes mellitus in pregnancy, unspecified control (principal); O26.893 Other specified pregnancy related conditions, third trimester; H53.8 Other visual disturbances; O12.03 Gestational edema, third trimester; Z3A.35 35 weeks gestation of pregnancy; Z79.899 Other long term (current) drug therapy
CPT/HCPCS: 36415; 76819; 80053; 81001; 81002; 82570; 84156; 84550; 85007; 85027; 85610; 85730; 94760; G0378

== ENCOUNTER 2024-07-22 14:03 | Observation (INO) | payer MEDICAID ==
--- NOTE | 2024-07-22 15:33 | DVH ---
BIOPHYSICAL PROFILE HISTORY: PIH TECHNIQUE: Multiple transabdominal real-time grayscale sonographic images through the gravid uterus of the fetus with duplex Doppler color flow and M-mode spectral analysis FINDINGS: BIOPHYSICAL PROFILE: breathing score: 2 movement score: 2 tone score: 2 Quantitative DEVON score: 2 (DEVON: 10.8 Cm.) Total score: 8 The cervix not well visualized Single live fetus in cephalic presentation. heart rate 149 beats per minute. Anterior placenta without previa or abruption IMPRESSION: Biophysical profile score: 8
--- NOTE | 2024-07-22 18:49 | DVHDS2 ---
Physician Discharge Progress N Final Diagnosis: testing for PIH Operations or Procedures: Operations or Procedures 28yo IUP@36wks, +FM, denies UCs/LOF/VB/RICK/vision changes/RUQ pain. takes labetalol as prescribed. NST reactive VSS FKC/PTL precautions reviewed Dr. Banegas consulted, agrees with POC. Other Interventions Other Interventions [address] [address] Ph: [phone] DIAGNOSTIC IMAGING Diagnostic Imaging Report : [id number] Signed PATIENT: LARS LINO ACCT: [id number] UNIT: [id number] : 1995 LOC: [facility] ROOM / BED: TRIAGE2 / A AGE / SEX: 28 / F ADM STATUS: ADM IN SERVICE 21 ORDERING PHYSICIAN: RICH DANIELSON CNM PROCEDURE(s): BPP - BIOPHYSICAL PROFILE REASON: PIH ORDER NUMBER(s): [id number], ACCESSION NUMBER(s): [id number] BIOPHYSICAL PROFILE HISTORY: PIH TECHNIQUE: Multiple transabdominal real-time grayscale sonographic images through the gravid uterus of the fetus with duplex Doppler color flow and M-mode spectral analysis FINDINGS: BIOPHYSICAL PROFILE: breathing score: 2 movement score: 2 tone score: 2 Quantitative DEVON score: 2 (DEVON: 10.8 Cm.) Total score: 8 The cervix not well visualized Single live fetus in cephalic presentation. heart rate 149 beats per minute. Anterior placenta without previa or abruption IMPRESSION: Biophysical profile score: 8 ATED BY: WILLIAM DON MD DICTATED DATE/TIME: 07/22/24 153 SIGNED BY: WILLIAM DON MD SIGNED DATE/TIME: 07/22/24 153 CC: Condition on Discharge: Stable Disposition: Home Discharge Instructions: Diet: Regular Activity: No Restrictions, As Tolerated Medications: see med list Follow Up Care: Specialist: f/u in 3 days Discharge Statement: "Patient was advised to return to the ER or call 911 if any headaches, dizziness, shortness of breath, chest pain, abdominal pain, bleeding, fevers, or worsening of medical condition. Patient was counseled about treatment plan, medications, possible side effects, patientverbalized understanding. All questions were answered to the best of my ability. This discharge took greater then 30 minutes in planning, reviewing documentation, counseling the patient, and discussing with other team members." Visit Coding OBGYN Date of Service: Jul 22, 2024 Billing Provider: RICH DANIELSON CNM RISK CONTROL CONSULTANT Common Visit Codes: [id number]-[id number] OBS CARE (HIGH) RISK CONTROL CONSULTANT Procedure Codes: 30850-74- NON-STRESS TEST RICH DANIELSON CNM Jul 22, 2024 18:49
== END 2024-07-22 15:50 | disposition home or self-care (01) ==
LOC: LDRP 14:03
PROVIDERS: ADMIT Obstetrics & Gynecology; ATTEND Obstetrics & Gynecology
DX: O13.3 Gestational [pregnancy-induced] hypertension without significant proteinuria, third trimester (principal); Z3A.36 36 weeks gestation of pregnancy; Z79.899 Other long term (current) drug therapy; Z98.890 Other specified postprocedural states
CPT/HCPCS: 59025; 76819; 81002; 94760; G0378

== ENCOUNTER 2024-07-25 07:10 | Observation (INO) | payer MEDICAID ==
[~2024-07-25] VITALS: Ht 162.6 cm; Wt 68.0 kg
[2024-07-25 12:32] LABS: Urine Bacteria None Seen /hpf (None Seen)
[2024-07-25 12:41] LABS: Hemoglobin 11.3 g/dL (12.2-16.2)
[2024-07-25 12:43] LABS: Hematocrit 34.1 % (36.0-46.0); Mean Corpuscular Hemoglobin 25.2 pg (28.0-32.0); Mean Corpuscular Hgb Conc. 33.1 g/dL (32.0-36.0); Mean Corpuscular Volume 76.2 fL (80.0-100.0); Platelet Count (auto) 271 10^3/uL (140-450); Red Blood Cells 4.47 10^6/uL (4.0-5.20); Red Cell Distribution Width 16.3 % (11.8-14.3); White Blood Cell 11.4 10^3/uL (4.4-10.8)
[2024-07-25 12:46] LABS: Basophils % (manual) 0 (0.0-2.0); Blast Cells 0; Eosinophils % (manual) 0 (0-7); Metamyelocytes % 0; Myelocytes % 0; Promyelocytes % 0; Reactive Lymphocytes 0
[2024-07-25 12:49] LABS: Protein, Urine 12.3 mg/dL (1-14)
[2024-07-25 12:51] LABS: Creatinine, Urine 34.97 mg/dL (30.0-125.0); Urine Protein/Creatinine Ratio 0.35
[2024-07-25 12:52] LABS: Amphetamine Screen, Urine Neg (NEGATIVE); Barbiturate Scree,Urine Neg (NEGATIVE); Benzodiazephine Screen, Urine Neg (NEGATIVE); Cannabinoid Screen, Urine Neg (NEGATIVE); Cocaine Screen, Urine Neg (NEGATIVE); Opiate Scree,Urine Neg (NEGATIVE); Phencyclidine Screen, Urine Neg (NEGATIVE)
[2024-07-25 12:54] LABS: Alanine Aminotransferase 12 U/L (7-40); Albumin 3.7 g/dL (3.2-4.8); Anion Gap 10 (5-15); BUN/Creatinine Ratio 15.2 (10.0-20.0); Calcium 8.8 mg/dL (8.7-10.4); Carbon Dioxide 20 mmol/L (20-31); Potassium 3.7 mmol/L (3.5-5.1); Sodium 139 mmol/L (136-145); Uric Acid 3.5 mg/dL (3.1-7.8)
[2024-07-25 12:55] LABS: Bilirubin, Total 0.4 mg/dL (0.2-1.0)
[2024-07-25 12:59] LABS: Alkaline Phosphatase 127 U/L (46-116); Aspartate Aminotransferase 12 U/L (13-40); Blood Urea Nitrogen 7 mg/dL (9-23); Chloride 109 mmol/L (98-107); Glucose 120 mg/dL (74-106)
[2024-07-25 13:03] LABS: Urine Blood Negative /uL (Negative); Urine Clarity Clear (Clear); Urine Color Light-Yellow (Yellow); Urine Protein, UAD Negative (Negative); Urine Specific Gravity 1.012 (1.001-1.035); Urine Squamous Epithelial Cell FEW /hpf (<5); Urine Urobilinogen Normal (Negative); Urine WBC 2 /HPF (0-5)
--- NOTE | 2024-07-25 13:27 | DVH ---
BIOPHYSICAL PROFILE HISTORY: PIH TECHNIQUE: Multiple transabdominal real-time grayscale sonographic images through the gravid uterus of the fetus with duplex Doppler color flow and M-mode spectral analysis FINDINGS: BIOPHYSICAL PROFILE: breathing score: 2 movement score: 0 tone score: 0 Quantitative DEVON score: 2 (DEVON: 8.9 Cm.) Total score: 4/8 The cervix not well visualized. Single live fetus in cephalic presentation. heart rate 159 beats per minute. Anterior placenta without previa or abruption IMPRESSION: Biophysical profile score: 4/8
[2024-07-25 13:34] LABS: INR 0.91 (0.9-1.15); Partial Thromboplastin Time 26.2 SEC (24.5-34.5); Prothrombin Time 9.7 sec (9.3-11.8)
[2024-07-25] MEDS ORDERED: LACTATED RINGER'S 1,000 ML IV ONE (13:45)
[2024-07-25] MEDS: LACTATED RINGER'S 1,000 ML IV SCH (14:19)
[2024-07-25 14:48] LABS: Band Neutrophils % (manual) 1; Lymphocytes % (manual) 26 (10.0-50.0); Monocytes % (manual) 5 (0-12); Platelet Estimate Adequate
--- NOTE | 2024-07-25 15:47 | DVH ---
BIOPHYSICAL PROFILE HISTORY: pih TECHNIQUE: Multiple real-time grayscale sonographic images through the gravid uterus of the fetus wi th duplex Doppler color flow. Comparison: 07/25/2024 FINDINGS: BIOPHYSICAL PROFILE: breathing score: 2 movement score: 2 tone score: 2 Quantitative DEVON score: 2 Total score: 8 out of 8 Placenta is anteriorly positioned. DEVON of 11.2 cm. heart rate of 139 beats per minute. Cephali c presentation. IMPRESSION: 1. Biophysical profile score: 8 out of 8
--- NOTE | 2024-07-25 18:39 | DVHDS2 ---
Physician Discharge Progress N Final Diagnosis: pih rule dout 36wks Operations or Procedures: Operations or Procedures nst reviewed reactive,sono Condition on Discharge: Good Disposition: Home Discharge Instructions: Diet: Regular Activity: No Restrictions, As Tolerated Medications: na Follow Up Care: Specialist: 4d Discharge Statement: "Patient was advised to return to the ER or call 911 if any headaches, dizziness, shortness of breath, chest pain, abdominal pain, bleeding, fevers, or worsening of medical condition. Patient was counseled about treatment plan, medications, possible side effects, patientverbalized understanding. All questions were answered to the best of my ability. This discharge took greater then 30 minutes in planning, reviewing documentation, counseling the patient, and discussing with other team members." Visit Coding OBGYN Date of Service: Jul 25, 2024 Billing Provider: SAKINA FUENTES DO ENGAGEMENT DIRECTOR Common Visit Codes: 64822-[id number] INP/OBS CARE (HIGH) ENGAGEMENT DIRECTOR Procedure Codes: 87059-24- NON-STRESS TEST SAKINA FUENTES DO Jul 25, 2024 18:39
== END 2024-07-25 16:10 | disposition home or self-care (01) ==
LOC: LDRP 12:00 → UNDOADMOB 12:00 → LDRP 12:08
PROVIDERS: ADMIT Obstetrics & Gynecology; ATTEND Obstetrics & Gynecology
DX: O13.3 Gestational [pregnancy-induced] hypertension without significant proteinuria, third trimester (principal); Z3A.36 36 weeks gestation of pregnancy; Z79.899 Other long term (current) drug therapy; Z98.890 Other specified postprocedural states
CPT/HCPCS: 36415; 59025; 76819; 80053; 80307; 81001; 82570; 84156; 84550; 85007; 85027; 85610; 85730; 94760; 96360; 96361; G0378

== ENCOUNTER 2024-07-29 06:20 | Observation (INO) | payer MEDICAID ==
--- NOTE | 2024-07-29 12:47 | DVH ---
CLINICAL HISTORY: -induced hypertension. COMPARISON: US BIOPHYSICAL PROFILE on DOS: 07/25/24, US BIOPHYSICAL PROFILE on DOS: 07/25/24, US BIOPHYSI MARILYN PROFILE on DOS: 07/22/24 TECHNIQUE: biophysical profile was performed. Transabdominal sonographic images of the fetus we re obtained. FINDINGS: The fetus is in cephalic position. heart rate measures 150 BPM. Amniotic fluid index measures 12.9 cm. The placenta is anterior in position with no evidence of previa or abruption. BPP profile is an overall score of 8/8, with 2/2 points for breathing, with at least one episode of breathing over a 30 second duration during a 30 minute observation, 2/2 points for m ovements, with 3 or more discrete body or limb movements, 2/2 points for tone, with one or more episodes of extremity extension with return to flexion, or opening and closing of hand, and 2/ 2 points for amniotic fluid, with at least 1 pocket of amniotic fluid that measures 2 cm in 2 perpend icular planes. IMPRESSION: BPP score of 8/8.
--- NOTE | 2024-07-29 13:59 | DVHDS2 ---
Physician Discharge Progress N Final Diagnosis: testing for PIH Operations or Procedures: Operations or Procedures 28yo IUP@37.0wks, +FM, denies UCs/LOF/VB/RICK/vision changes/RUQ pain. Pt reports not taking labetalol 100mg PO BID because it makes her dizzy/nauseous/no energy. VSS NST reactive [facility]KC/PTL precautions reviewed. Dr. Banegas consulted, D/C'ed labetalol PO and f/u in 3 days Other Interventions Other Interventions [place] [address] Ph: [phone] DIAGNOSTIC IMAGING Diagnostic Imaging Report : [id number] Signed PATIENT: LARS LINO ACCT: [id number] UNIT: [id number] : 1995 LOC: [facility] ROOM / BED: TRIAGE2 / A AGE / SEX: 28 / F ADM STATUS: ADM IN SERVICE 1157 ORDERING PHYSICIAN: RICH DANIELSON CNM PROCEDURE(s): BPP - BIOPHYSICAL PROFILE REASON: [facility] ORDER NUMBER(s): [id number], ACCESSION NUMBER(s): [id number] CLINICAL HISTORY: -induced hypertension. COMPARISON: US BIOPHYSICAL PROFILE on DOS: 07/25/24, US BIOPHYSICAL PROFILE on DOS: 07/25/24, US BIOPHYSICAL PROFILE on DOS: 07/22/24 TECHNIQUE: biophysical profile was performed. Transabdominal sonographic images of the fetus were obtained. FINDINGS: The fetus is in cephalic position. heart rate measures 150 BPM. Amniotic fluid index measures 12.9 cm. The placenta is anterior in position with no evidence of previa or abruption. BPP profile is an overall score of 8/8, with 2/2 points for breathing, with at least one episode of breathing over a 30 second duration during a 30 minute observation, 2/2 points for movements, with 3 or more discrete body or limb movements, 2/2 points for tone, with one or more episodes of extremity extension with return to flexion, or opening and closing of hand, and 2/2 points for amniotic fluid, with at least 1 pocket of amniotic fluid that measures 2 cm in 2 perpendicular planes. IMPRESSION: BPP score of 8/8. ATED BY: ABIEL MOBLEY DO DICTATED DATE/TIME: 07/29/241243 SIGNED BY: ABIEL MOBLEY DO SIGNED DATE/TIME: 07/29/24 124 CC: Condition on Discharge: Stable Disposition: Home Discharge Instructions: Diet: Regular Activity: No Restrictions, As Tolerated Medications: see med list Follow Up Care: Specialist: f/u in 3 days Discharge Statement: "Patient was advised to return to the ER or call 911 if any headaches, dizziness, shortness of breath, chest pain, abdominal pain, bleeding, fevers, or worsening of medical condition. Patient was counseled about treatment plan, medications, possible side effects, patientverbalized understanding. All questions were answered to the best of my ability. This discharge took greater then 30 minutes in planning, reviewing documentation, counseling the patient, and discussing with other team members." Visit Coding OBGYN Date of Service: Jul 29, 2024 Billing Provider: RICH DANIELSON CNM SPECIAL EDUCATION SUPERINTENDENT Common Visit Codes: 65522-[id number] OBS CARE (HIGH) SPECIAL EDUCATION SUPERINTENDENT Procedure Codes: 73714-17- NON-STRESS TEST RICH DANIELSON CNM Jul 29, 2024 13:59
== END 2024-07-29 13:56 | disposition home or self-care (01) ==
LOC: LDRP 11:49
PROVIDERS: ADMIT Obstetrics & Gynecology; ATTEND Obstetrics & Gynecology
DX: O13.3 Gestational [pregnancy-induced] hypertension without significant proteinuria, third trimester (principal); Z3A.37 37 weeks gestation of pregnancy; Z79.899 Other long term (current) drug therapy; Z98.890 Other specified postprocedural states
CPT/HCPCS: 59025; 76819; 81002; 94760; G0378

== ENCOUNTER 2024-08-01 13:17 | Observation (INO) | payer MEDICAID ==
[~2024-08-01 13:17] MED LIST changes: -CEPH250C PO; -DOCU-265 PO; -IBU600T PO; -LABE100T7 PO
--- NOTE | 2024-08-01 16:28 | DVH ---
BIOPHYSICAL PROFILE HISTORY: PIH TECHNIQUE: Multiple transabdominal real-time grayscale sonographic images through the gravid uterus of the fetus with duplex Doppler color flow and M-mode spectral analysis FINDINGS: BIOPHYSICAL PROFILE: breathing score: 2 movement score: 2 tone score: 2 Quantitative DEVON score: 2 (DEVON: 10.7 Cm.) Total score: 8/8 The cervix NOT MEASURED Single live fetus in CEPHALIC presentation. heart rate 145 beats per minute. ANTERIOR Grade 2 placenta without previa or abruption Single live fetus at 37 WEEKS 4 DAYS Biophysical profile score 8/8 corresponding to an KEVIN of 08/19/2024 Estimated weight NOT CALCULATED g IMPRESSION: 1. Biophysical profile score: 8/8.
--- NOTE | 2024-08-01 17:25 | DVHDS2 ---
Physician Discharge Progress N Final Diagnosis: IUP 37 wk, suspected gestational HTN Secondary Diagnosis: Encounter for surveillance Operations or Procedures: Operations or Procedures NST/BPP/DEVON BP check Commentary: Commentary Patient asymptomatic BP's all normal status reassuring , category 1 Condition on Discharge: Stable Disposition: Home Discharge Instructions: Diet: Regular Activity: No Restrictions, As Tolerated Follow Up/Referral: As scheduled F/U w/ Dr Banegas to scheduled planned delivery, induction, if indicated Medications: N/A Follow Up Care: Discharge Statement: "Patient was advised to return to the ER or call 911 if any headaches, dizziness, shortness of breath, chest pain, abdominal pain, bleeding, fevers, or worsening of medical condition. Patient was counseled about treatment plan, medications, possible side effects, patientverbalized understanding. All questions were answered to the best of my ability. This discharge took greater then 30 minutes in planning, reviewing documentation, counseling the patient, and discussing with other team members." Visit Coding OBGYN Date of Service: Aug 01, 2024 Billing Provider: FILIBERTO RAMOS DO TABLE GAMES SHIFT MANAGER Common Visit Codes: [id number] SAME DATE (MOD) TABLE GAMES SHIFT MANAGER Procedure Codes: 10719-49- NON-STRESS TEST FILIBERTO RAMOS DO Aug 01, 2024 17:25
== END 2024-08-01 16:34 | disposition home or self-care (01) ==
LOC: UNDOADMOB 14:05 → LDRP 14:05
PROVIDERS: ADMIT Obstetrics & Gynecology; ATTEND Obstetrics & Gynecology
DX: O62.9 Abnormality of forces of labor, unspecified (principal); Z3A.37 37 weeks gestation of pregnancy; Z79.899 Other long term (current) drug therapy; Z98.890 Other specified postprocedural states
CPT/HCPCS: 59025; 76819; 81002; 94760; G0378

== ENCOUNTER 2024-08-05 13:04 | Observation (INO) | payer MEDICAID ==
[2024-08-05 13:50] LABS: Hemoglobin 11.1 g/dL (12.2-16.2); Mean Corpuscular Volume 76.3 fL (80.0-100.0)
[2024-08-05 13:52] LABS: Hematocrit 33.6 % (36.0-46.0); Mean Corpuscular Hemoglobin 25.3 pg (28.0-32.0); Mean Corpuscular Hgb Conc. 33.1 g/dL (32.0-36.0); Platelet Count (auto) 253 10^3/uL (140-450); Red Cell Distribution Width 16.6 % (11.8-14.3); White Blood Cell 10.3 10^3/uL (4.4-10.8)
--- NOTE | 2024-08-05 13:53 | DVH ---
EXAM: US BIOPHYSICAL PROFILE HISTORY: PIH COMPARISON: US BIOPHYSICAL PROFILE on DOS: 08/01/24 TECHNIQUE: Transabdominal real time page scale, color, and doppler evaluation. Permanent images are maintained in the patient record. FINDINGS: Normal biophysical profile score 8/8. Normal cardiac rate measuring 143 beats per minute. Amniotic f luid index measures 9 cm. Cephalic presentation. Anterior placenta location. IMPRESSION: 1. Single viable gestation with normal cardiac heart rate.
[2024-08-05 14:02] LABS: Band Neutrophils % (manual) 0; Basophils % (manual) 0 (0.0-2.0); Blast Cells 0; Metamyelocytes % 0; Promyelocytes % 0; Reactive Lymphocytes 0
[2024-08-05 14:07] LABS: Alanine Aminotransferase 10 U/L (7-40); Albumin 3.5 g/dL (3.2-4.8); Anion Gap 10 (5-15); Aspartate Aminotransferase 13 U/L (<34); BUN/Creatinine Ratio 14.9 (10.0-20.0); Bilirubin, Total 0.4 mg/dL (0.2-1.0); Carbon Dioxide 21 mmol/L (20-31); Sodium 139 mmol/L (136-145); Uric Acid 3.6 mg/dL (3.1-7.8)
[2024-08-05 14:08] LABS: Alkaline Phosphatase 133 U/L (46-116); Blood Urea Nitrogen 7 mg/dL (9-23); Calcium 8.5 mg/dL (8.7-10.4); Chloride 108 mmol/L (98-107); Glucose 120 mg/dL (74-106); Potassium 3.5 mmol/L (3.5-5.1)
[2024-08-05 14:10] LABS: INR 0.91 (0.9-1.15); Partial Thromboplastin Time 26.9 SEC (24.5-34.5); Prothrombin Time 9.7 sec (9.3-11.8)
[2024-08-05 14:37] LABS: Anisocytosis Slight; Eosinophils % (manual) 3 (0-7); Lymphocytes % (manual) 16 (10.0-50.0); Monocytes % (manual) 8 (0-12); Myelocytes % 1; Platelet Estimate Adequate
[2024-08-05 15:42] LABS: Protein, Urine 19.3 mg/dL (1-14)
[2024-08-05 15:43] LABS: Creatinine, Urine 45.59 mg/dL (30.0-125.0); Urine Bacteria FEW /hpf (None Seen); Urine Blood Negative /uL (Negative); Urine Clarity Clear (Clear); Urine Color Light-Yellow (Yellow); Urine Protein, UAD Negative (Negative); Urine Protein/Creatinine Ratio 0.42; Urine Specific Gravity 1.012 (1.001-1.035); Urine Squamous Epithelial Cell FEW /hpf (<5); Urine Urobilinogen Normal (Negative); Urine WBC 1 /HPF (0-5); Urine pH 6.5 (5.0-9.0)
[2024-08-05 15:44] LABS: Amphetamine Screen, Urine Neg (NEGATIVE); Barbiturate Scree,Urine Neg (NEGATIVE); Benzodiazephine Screen, Urine Neg (NEGATIVE); Cannabinoid Screen, Urine Neg (NEGATIVE); Cocaine Screen, Urine Neg (NEGATIVE); Opiate Scree,Urine Neg (NEGATIVE); Phencyclidine Screen, Urine Neg (NEGATIVE)
--- NOTE | 2024-08-06 08:09 | DVHDS2 ---
Physician Discharge Progress N Final Diagnosis: rule out rom-rom ruled out 37wk gest htn Operations or Procedures: Operations or Procedures nst reactive reviwed,sono Condition on Discharge: Good Disposition: Home Discharge Instructions: Diet: Regular Activity: No Restrictions, As Tolerated Medications: na Follow Up Care: Specialist: 2d Discharge Statement: "Patient was advised to return to the ER or call 911 if any headaches, dizziness, shortness of breath, chest pain, abdominal pain, bleeding, fevers, or worsening of medical condition. Patient was counseled about treatment plan, medications, possible side effects, patientverbalized understanding. All questions were answered to the best of my ability. This discharge took greater then 30 minutes in planning, reviewing documentation, counseling the patient, and discussing with other team members." Visit Coding OBGYN Date of Service: Aug 05, 2024 Billing Provider: SAKINA FUENTES DO HIGH SCHOOL SCIENCE TUTOR Common Visit Codes: [id number] OBS CARE (HIGH) HIGH SCHOOL SCIENCE TUTOR Procedure Codes: 83427-43- NON-STRESS TEST SAKINA FUENTES DO Aug 06, 2024 08:09
== END 2024-08-05 15:06 | disposition home or self-care (01) ==
LOC: LDRP 13:05 → UNDOADMOB 13:05 → LDRP 13:13 → UNDODISOB 15:06
PROVIDERS: ADMIT Obstetrics & Gynecology; ATTEND Obstetrics & Gynecology
DX: O13.3 Gestational [pregnancy-induced] hypertension without significant proteinuria, third trimester (principal); O26.893 Other specified pregnancy related conditions, third trimester; R51.9 Headache, unspecified; Z98.890 Other specified postprocedural states; Z79.899 Other long term (current) drug therapy; Z3A.37 37 weeks gestation of pregnancy
CPT/HCPCS: 36415; 59025; 76819; 80053; 80307; 81001; 81002; 82570; 84156; 84550; 85007; 85027; 85610; 85730; 86780; 86850; 86900; 86901; 94760; G0378

== ENCOUNTER 2024-08-08 18:54 | Inpatient (IN) | payer MEDICAID ==
[~2024-08-08] VITALS: Ht 157.5 cm; Wt 73.0 kg
[2024-08-08] MEDS ORDERED: NALBUPHINE HCL 10 MG/1ml INJECTION IV PRN (19:00)
[2024-08-08] MEDS ORDERED: NALBUPHINE HCL 10 MG/1ml INJECTION IM PRN (19:00)
[2024-08-08] MEDS ORDERED: LIDOCAINE 2%HCL (LOCAL ANESTH.) INJ 20ML MDV IJ PRN (19:00)
[2024-08-08 19:36] LABS: Urine Bacteria FEW /hpf (None Seen); Urine Blood Negative /uL (Negative); Urine Clarity Turbid (Clear); Urine Color Light-Yellow (Yellow); Urine Hyaline Cast FEW /lpf (0 - 2); Urine Mucus FEW (None Seen); Urine Protein, UAD TRACE (Negative); Urine Specific Gravity 1.019 (1.001-1.035); Urine Squamous Epithelial Cell MOD /hpf (<5); Urine Urobilinogen Normal (Negative); Urine WBC 6 /HPF (0-5); Urine pH 6.5 (5.0-9.0)
[2024-08-08 19:45] LABS: INR 0.88 (0.9-1.15); Partial Thromboplastin Time 26.3 SEC (24.5-34.5); Prothrombin Time 9.4 sec (9.3-11.8)
[2024-08-08 19:49] LABS: Creatinine, Urine 82.47 mg/dL (30.0-125.0); Urine Protein/Creatinine Ratio 0.47
[2024-08-08 19:50] LABS: Alanine Aminotransferase 12 U/L (7-40); Albumin 3.8 g/dL (3.2-4.8); Anion Gap 11 (5-15); Aspartate Aminotransferase 16 U/L (<34); BUN/Creatinine Ratio 19.1 (10.0-20.0); Bilirubin, Total 0.4 mg/dL (0.2-1.0); Glucose 102 mg/dL (74-106); Potassium 3.8 mmol/L (3.5-5.1); Sodium 138 mmol/L (136-145); Total Protein 6.4 g/dL (5.7-8.2)
[2024-08-08] MEDS: miSOPROStol 50 MCG per PRE-CUT 1/2 TAB PO PRN (19:50)
[2024-08-08 19:51] LABS: Alkaline Phosphatase 147 U/L (46-116); Blood Urea Nitrogen 9 mg/dL (9-23); Carbon Dioxide 19 mmol/L (20-31); Chloride 108 mmol/L (98-107)
[2024-08-08 19:52] LABS: Amphetamine Screen, Urine Neg (NEGATIVE); Barbiturate Scree,Urine Neg (NEGATIVE); Benzodiazephine Screen, Urine Neg (NEGATIVE); Cannabinoid Screen, Urine Neg (NEGATIVE); Cocaine Screen, Urine Neg (NEGATIVE); Opiate Scree,Urine Neg (NEGATIVE); Phencyclidine Screen, Urine Neg (NEGATIVE)
[2024-08-08 19:57] LABS: Eosinophils # (auto) 0.1 10 ^3/uL (0-0.8); Hemoglobin 11.4 g/dL (12.2-16.2); Monocytes # (auto) 1.1 10 ^3/uL (0-1.3); Nucleated Red Blood Cells % 0.1 %; White Blood Cell 12.6 10^3/uL (4.4-10.8)
[2024-08-08 19:58] LABS: Basophils # (auto) 0.1 10 ^3/uL (0-0.2); Basophils % (auto) 0.5 % (0.0-2.0); Eosinophils % (auto) 0.7 % (0.0-7.0); Hematocrit 35.1 % (36.0-46.0); Lymphocytes # (auto) 2.2 10 ^3/uL (0.4-5.4); Lymphocytes % (auto) 17.4 % (10.0-50.0); Mean Corpuscular Hemoglobin 24.8 pg (28.0-32.0); Mean Corpuscular Hgb Conc. 32.5 g/dL (32.0-36.0); Mean Corpuscular Volume 76.5 fL (80.0-100.0); Monocytes % (auto) 8.6 % (0.0-12.0); Neutrophils # (auto) 9.2 10 ^3/uL (1.6-8.6); Neutrophils % (auto) 72.8 % (37.0-80.0); Platelet Count (auto) 266 10^3/uL (140-450); Red Blood Cells 4.58 10^6/uL (4.0-5.20); Red Cell Distribution Width 17.4 % (11.8-14.3)
[2024-08-08] MEDS: WITCH HAZEL-GLYCERIN PAD TOP PRN (19:59)
[2024-08-08] MEDS: PHISODERM TOP SOLN 240ML BTL TOP PRN (19:59)
[2024-08-08] MEDS: DERMOPLAST 60ML BOTTLE TOP PRN (20:00)
[2024-08-08] MEDS: LACTATED RINGER'S 1,000 ML IV SCH (20:01)
--- NOTE | 2024-08-08 22:49 | DVHHP2 ---
OB CC & HPI Date Date of Admission: Aug 08, 2024 Patient Identification: : 4 Para: 2 EDC: Aug 19, 2024 EGA: 38w 3d Chief Complaints: Reason for admission: induction of labor Indication for induction: medical complication Other reason for admission: Pre Eclampsia Admission Nurse Assessment Rev: Yes History of Present Complaints 28 yo [id number],[id number] @ 38w 3d EGKyaw presents to the Place for IOL for Pre Eclampsia. She reports Normal movements, no leakage of fluid or vaginal bleeding. Received care with Dr Kirk and . . Past Medical History Cardiac: No pertinent Hx Pulmonary: No pertinent Hx Central Nervous System: No pertinent Hx GI: No pertinent Hx Hemotology/Oncology: No pertinent Hx Hepatobiliary: No pertinent Hx Psychiatric: No pertinent Hx Musculoskeletal: No pertinent Hx Rheumotologic: No pertinent Hx Infectious Disease: No peritnent Hx ENT: No pertinent Hx Renal/: No pertinent Hx Endocrine: No pertinent Hx Dermatology: No pertinent Hx Past Surgical History: No pertinent Hx OB History OB History Care: Good Care Ultrasounds: Normal mid trimester US Obstetrical Complications: Pre-eclampsia Medical Complications: None Other Concerns: h/o Pre-eclampsia with G#3 Allergies: Coded Allergies: Doxycycline (Verified Allergy, Unknown, 08/11/23) Home Meds Reported Medications Vit W/ Ferrous Fumara ( One Daily) Daily Tab, 1 TAB PO DAILY, #90 TAB 3 Refills 08/11/23 Current Medications Current Medications Medications (Trade) Dose Ordered Sig/Maria Victoria Route PRN Reason Start Time Stop Time Status Last Admin Lactated Ringer's 1,000 ml @ 125 mls/hr Q8H IV 08/08/24 19:00 08/08/24 20:01 Nalbuphine HCl (Nubain) 10 mg Q4HP PRN IM MODERATE PAIN (4-6 PAIN SCALE) 08/08/24 19:00 08/08/24 19:35 DC Nalbuphine HCl (Nubain) 10 mg Q4HP PRN IV MODERATE PAIN (4-6 PAIN SCALE) 08/08/24 19:00 Delicia Simon (Tucks) 1 pad PRN PRN TOP PERINEAL AREA DISCOMFORT 08/08/24 19:00 08/08/24 19:59 Sodium Lauryl Sulfate (Phisoderm) 240 ml PRN PRN TOP PERINEAL AREA DISCOMFORT 08/08/24 19:00 08/08/24 19:59 Benzocaine (Dermoplast) 1 applic PRN PRN TOP PERINEAL AREA DISCOMFORT 08/08/24 19:00 08/08/24 20:00 Lidocaine HCl (Xylocaine) 20 ml ONCE PRN IJ PERINEAL AREA DISCOMFORT 08/08/24 19:00 Misoprostol (Cytotec) 50 mcg Q4HPRN PRN PO CERVICAL RIPENING 08/08/24 19:30 08/08/24 19:50 Family & Social History Family/Social History Past Family/Social History: None pertinent Blood Type: A+ Rubella: immune RPR/VDRL: Negative GBS Status: Negative HBsAG: Negative Review of Systems Constitutional: No symptom reported Ears, Nose, & Throat: No symptom reported Eyes: No symptom reported Pulmonary/Respiratory: No symptom reported Cardiovascular: No symptom reported Gastrointestinal: No symptom reported Genitourinary: No symptom reported Musculoskeletal: No symptom reported Skin: No symptom reported Psychiatric: No symptom reported Endocrine: No symptom reported Hemotologic/Lymphatic: No symptom reported OB Admission Exam Physical Exam HEENT: TMs Normal, Fontanelles Normal, Nasal Mucosa Normal, Eyes non-injected, Oropharynx Normal, PERRLA, Moist Membranes, EOMI Heart: Rhythm Normal Lungs: Clear Abdomen: Gravid (non-tender) Extremities: Normal Reflexes: Normal Cervical Dilatation: 1cm Effacement: 25% Station: -3 Membranes: Intact Accelerations: Accelerations Present Decelerations: No Decelerations Care Home Variability: Average (6-25) Contractions on Admission: 6-10 Minutes Apart (Not felt by patient) OB Plan Plan Admitting Diagnosis: IUP at 38w 3d Pre Eclampsia Induction of labor Plan: Induction Induction Methd: Misoprostol protocol Other Plan: IOL process, cervical ripening with medication, cervical ripening balloon, oxytocin etc including the risks, benefits and options discussed with the patient & partner. Informed consent obtained. Risk of pain, bleeding, infection, discussed with the patient and partner Consent for possible blood transfusion obtained. All questions answered. Admit to Place for scheduled IOL Routine L&D admission orders Misoprostol per protocol EFM per policy & protocol Intrauterine resuscitation PRN Labor analgesia PRN Encourage frequent position change and / ambulation to facilitate labor & descent Supportive Care Anticipate Co-managing in collaboration and consultation with Dr López Banegas Visit Coding OBGYN Date of Service: Aug 08, 2024 Billing Provider: BORIS STEVENS CNM WAITER/WAITRESS CAPTAIN Common Visit Codes: [id number] INP/OBS CARE (HIGH) WAITER/WAITRESS CAPTAIN Procedure Codes: 46905-66- NON-STRESS TEST BORIS TSEVENS CNM Aug 08, 2024 22:48
[2024-08-09] VITALS (13 sets, daily range): BP systolic 101–133; BP diastolic 54–83; PULSE 7–94; RESP 16–17; TEMP 97.5–98.1; O2SAT 96–99
--- NOTE | 2024-08-09 00:25 | DVHPN2 ---
[facility] Labor Progress Note Date and Time Seen Date Seen: Aug 08, 2024 Time Seen: 23:45 Subjective Patient reports: No new complaints Objective Vital Signs VSS Monitoring Method Monitoring Method: External Heart Rate Heart Rate Baseline: 135 Heart Rate Variability: Moderate Presence of FHR Accelerations: Yes Presence of FHR Decelerations: No Changes in Trends of Patterns: No Are all 5 Components of the FH: Yes Contractions Contractions Frequency: Other (2-3 in 10minutes) Duration of Contraction: 70 Contractions Intensity: Mild Contractions Resting Tone: Relaxed Membranes Membranes: Intact Vaginal Exam Vag Exam Deferred: No Vaginal Exam Dilation: 2 Vaginal Exam Effacement: 50 Vaginal Exam Station: -2 Vaginal Exam Presentation: VTX Vaginal Exam Show: Small Medications Medications - Pitocin: No Medication - Epidural: No Medication - Other Misoprostol Dose #1 given at 1950 Lab Results Lab Results Current Medications Medications (Trade) Dose Ordered Sig/Maria Victoria Start Time Stop Time Status Last Admin Dose Admin Lactated Ringer's 1,000 ml @ 125 mls/hr Q8H 08/08/24 19:00 08/08/24 20:01 125 MLS/HR Nalbuphine HCl (Nubain) 10 mg Q4HP PRN 08/08/24 19:00 08/08/24 19:35 DC Nalbuphine HCl (Nubain) 10 mg Q4HP PRN 08/08/24 19:00 Witluis carlos Simon (Tucks) 1 pad PRN PRN 08/08/24 19:00 08/08/24 19:59 1 PAD Sodium Lauryl Sulfate (Phisoderm) 240 ml PRN PRN 08/08/24 19:00 08/08/24 19:59 240 ML Benzocaine (Dermoplast) 1 applic PRN PRN 08/08/24 19:00 08/08/24 20:00 1 APPLIC Lidocaine HCl (Xylocaine) 20 ml ONCE PRN 08/08/24 19:00 Misoprostol (Cytotec) 50 mcg Q4HPRN PRN 08/08/24 19:30 08/09/24 00:23 50 MCG Oxytocin 500 ml @ 999 mls/hr Q31M ONCE 08/08/24 19:30 08/08/24 20:00 DC Oxytocin 500 ml @ 125 mls/hr Q4H ONCE 08/08/24 20:00 08/08/24 23:59 DC Naloxone HCl (Narcan) 0.2 mg PRN ONCE 08/09/24 01:45 08/09/24 01:46 DC Ephedrine Sulfate (ePHEDrine SULFATE) 10 mg PRN ONCE 08/09/24 01:45 08/09/24 01:46 DC Lactated Ringer's 1,000 ml @ 1,000 mls/hr Q1H ONCE 08/09/24 01:45 08/09/24 02:44 DC 08/09/24 01:46 1,000 MLS/HR Oxytocin 1,000 ml @ 6 ml/hr Q24H 08/09/24 04:15 Terbutaline Sulfate (Brethine Inj) 0.25 mg ONCE PRN 08/09/24 04:15 Laboratory Tests Test 08/08/24 19:20 08/08/24 19:09 08/08/24 18:55 Range/Units Urine Creatinine 82.47 30.0-125.0 mg/dL Urine Protein/Creatinine Ratio 0.47 Urine Total Protein 39.0 H 1-14 mg/dL Urine Opiates Screen Neg NEGATIVE Urine Fentanyl Screen Neg NEGATIVE Urine Barbiturates Screen Neg NEGATIVE Urine Phencyclidine Screen Neg NEGATIVE Urine Amphetamines Screen Neg NEGATIVE Urine Benzodiazepines Screen Neg NEGATIVE Urine Cocaine Screen Neg NEGATIVE Urine Cannabinoids Screen Neg NEGATIVE White Blood Count 12.6 H 4.4-10.8 10^3/uL Red Blood Count 4.58 4.0-5.20 10^6/uL Hemoglobin 11.4 L 12.2-16.2 g/dL Hematocrit 35.1 L 36.0-46.0 % Mean Corpuscular Volume 76.5 L 80.0-100.0 fL Mean Corpuscular Hemoglobin 24.8 L 28.0-32.0 pg Mean Corpuscular Hemoglobin Concent 32.5 32.0-36.0 g/dL Red Cell Distribution Width 17.4 H 11.8-14.3 % Platelet Count 266 140-450 10^3/uL Mean Platelet Volume 9.5 6.9-10.8 fL Neutrophils (%) (Auto) 72.8 37.0-80.0 % Lymphocytes (%) (Auto) 17.4 10.0-50.0 % Monocytes (%) (Auto) 8.6 0.0-12.0 % Eosinophils (%) (Auto) 0.7 0.0-7.0 % Basophils (%) (Auto) 0.5 0.0-2.0 % Neutrophils # (Auto) 9.2 H 1.6-8.6 10 ^3/uL Lymphocytes # (Auto) 2.2 0.4-5.4 10 ^3/uL Monocytes # (Auto) 1.1 0-1.3 10 ^3/uL Eosinophils # (Auto) 0.1 0-0.8 10 ^3/uL Basophils # (Auto) 0.1 0-0.2 10 ^3/uL Nucleated Red Blood Cells 0.1 % Prothrombin Time 9.4 9.3-11.8 sec Prothrombin Time INR 0.88 L 0.9-1.15 Activated Partial Thromboplast Time 26.3 24.5-34.5 SEC Sodium Level 138 136-145 mmol/L Potassium Level 3.8 3.5-5.1 mmol/L Chloride Level 108 H 98-107 mmol/L Carbon Dioxide Level 19 L 20-31 mmol/L Anion Gap 11 5-15 Blood Urea Nitrogen 9 9-23 mg/dL Creatinine 0.47 L 0.550-1.02 mg/dL Glomerular Filtration Rate Calc 131 >90 mL/min BUN/Creatinine Ratio 19.1 10.0-20.0 Serum Glucose 102 74-106 mg/dL Uric Acid 3.8 3.1-7.8 mg/dL Calcium Level 9.0 8.7-10.4 mg/dL Total Bilirubin 0.4 0.2-1.0 mg/dL Aspartate Amino Transferase (AST) 16 <34 U/L Alanine Aminotransferase (ALT) 12 7-40 U/L Alkaline Phosphatase 147 H 46-116 U/L Total Protein 6.4 5.7-8.2 g/dL Albumin 3.8 3.2-4.8 g/dL Treponema pallidum Antibody Non-reactive Negative Hepatitis C Antibody Negative Negative Urine Color Light-yellow Yellow Urine Clarity Turbid H Clear Urine pH 6.5 5.0-9.0 Urine Specific [place] 1.019 1.001-1.035 Urine Protein Trace H Negative Urine Ketones Negative Negative Urine Blood Negative Negative /uL Urine Nitrite Negative Negative Urine Bilirubin Negative Negative Urine Urobilinogen Normal Negative mg/dL Urine Leukocyte Esterase 1+ Negative /uL Urine RBC 3 0 - 4 /hpf Urine Microscopic WBC 6 H 0-5 /HPF Urine Squamous Epithelial Cells Mod <5 /hpf Urine Bacteria Few H None Seen /hpf Urine Hyaline Casts Few 0 - 2 /lpf Urine Mucus Few None Seen Urine Glucose Normal Normal mg/dL Assessment Assessment IUP at 38w 3d Pre Eclampsia IOL for above Categoryy 1 FHR Tracing Plan Plan Continue current management Intrauterine resuscitation PRN Labor analgesia PRN Supportive care Plan discussed with: Patient, Spouse, Other (sister) Visit Coding OBGYN Date of Service: Aug 08, 2024 Billing Provider: BORIS STEVENS CNM MINERAL SURVEYOR Common Visit Codes: [id number] INP/OBS CARE(HIGH) MINERAL SURVEYOR Procedure Codes: 96050-51- NON-STRESS TEST BORIS STEVENS CNM Aug 09, 2024 00:25
[2024-08-09] MEDS: ePHEDrine SULFATE 50 MG/ML AMP IV ONE (01:45)
[2024-08-09] MEDS: NALOXONE HCL 0.4 MG/ML VIAL IV ONE (01:45)
[2024-08-09] MEDS: LACTATED RINGER'S 1,000 ML IV ONE (01:46)
[2024-08-09] MEDS: ROPIVACAINE HCL 100 ML ONE ×2 (02:24→03:02)
[2024-08-09] MEDS ORDERED: LACT. RINGERS/OXYTOCIN 20UNITS 1,000 ML IV SCH (04:15)
[2024-08-09] MEDS ORDERED: TERBUTALINE SULFATE 1 MG/ML 1ML VIAL SC PRN (04:15)
--- NOTE | 2024-08-09 05:29 | DVHPN2 ---
OB Labor Progress Note Date and Time Seen Date Seen: Aug 09, 2024 Time Seen: 05:10 Subjective Patient reports: No new complaints Objective Vital Signs VSS Monitoring Method Monitoring Method: External Heart Rate Heart Rate Baseline: 135 Heart Rate Variability: Moderate Presence of FHR Accelerations: Yes Presence of FHR Decelerations: Yes Heart Rate Type of Decel: Variable Decelerations Are all 5 Components of the FH: Yes Contractions Contractions Frequency: Other (Q3-5min) Duration of Contraction: 100 Contractions Intensity: Moderate Membranes Membranes: Intact Vaginal Exam Vag Exam Deferred: No Vaginal Exam Dilation: 6 Vaginal Exam Effacement: 75 Vaginal Exam Station: -2 Vaginal Exam Presentation: VTX Vaginal Exam Show: Moderate Medications Medications - Pitocin: No Medication - Epidural: Yes Medication - Other Misoprostol Dose #2 given at 00:23 Lab Results Lab Results Current Medications Medications (Trade) Dose Ordered Sig/Maria Victoria Start Time Stop Time Status Last Admin Dose Admin Lactated Ringer's 1,000 ml @ 125 mls/hr Q8H 08/08/24 19:00 08/08/24 20:01 125 MLS/HR Nalbuphine HCl (Nubain) 10 mg Q4HP PRN 08/08/24 19:00 08/08/24 19:35 DC Nalbuphine HCl (Nubain) 10 mg Q4HP PRN 08/08/24 19:00 Witluis carlos Simon (Tucks) 1 pad PRN PRN 08/08/24 19:00 08/08/24 19:59 1 PAD Sodium Lauryl Sulfate (Phisoderm) 240 ml PRN PRN 08/08/24 19:00 08/08/24 19:59 240 ML Benzocaine (Dermoplast) 1 applic PRN PRN 08/08/24 19:00 08/08/24 20:00 1 APPLIC Lidocaine HCl (Xylocaine) 20 ml ONCE PRN 08/08/24 19:00 Misoprostol (Cytotec) 50 mcg Q4HPRN PRN 08/08/24 19:30 08/09/24 00:23 50 MCG Oxytocin 500 ml @ 999 mls/hr Q31M ONCE 08/08/24 19:30 08/08/24 20:00 DC Oxytocin 500 ml @ 125 mls/hr Q4H ONCE 08/08/24 20:00 08/08/24 23:59 DC Naloxone HCl (Narcan) 0.2 mg PRN ONCE 08/09/24 01:45 08/09/24 01:46 DC Ephedrine Sulfate (ePHEDrine SULFATE) 10 mg PRN ONCE 08/09/24 01:45 08/09/24 01:46 DC Lactated Ringer's 1,000 ml @ 1,000 mls/hr Q1H ONCE 08/09/24 01:45 08/09/24 02:44 DC 08/09/24 01:46 1,000 MLS/HR Oxytocin 1,000 ml @ 6 ml/hr Q24H 08/09/24 04:15 Terbutaline Sulfate (Brethine Inj) 0.25 mg ONCE PRN 08/09/24 04:15 Laboratory Tests Test 08/08/24 19:20 08/08/24 19:09 08/08/24 18:55 Range/Units Urine Creatinine 82.47 30.0-125.0 mg/dL Urine Protein/Creatinine Ratio 0.47 Urine Total Protein 39.0 H 1-14 mg/dL Urine Opiates Screen Neg NEGATIVE Urine Fentanyl Screen Neg NEGATIVE Urine Barbiturates Screen Neg NEGATIVE Urine Phencyclidine Screen Neg NEGATIVE Urine Amphetamines Screen Neg NEGATIVE Urine Benzodiazepines Screen Neg NEGATIVE Urine Cocaine Screen Neg NEGATIVE Urine Cannabinoids Screen Neg NEGATIVE White Blood Count 12.6 H 4.4-10.8 10^3/uL Red Blood Count 4.58 4.0-5.20 10^6/uL Hemoglobin 11.4 L 12.2-16.2 g/dL Hematocrit 35.1 L 36.0-46.0 % Mean Corpuscular Volume 76.5 L 80.0-100.0 fL Mean Corpuscular Hemoglobin 24.8 L 28.0-32.0 pg Mean Corpuscular Hemoglobin Concent 32.5 32.0-36.0 g/dL Red Cell Distribution Width 17.4 H 11.8-14.3 % Platelet Count 266 140-450 10^3/uL Mean Platelet Volume 9.5 6.9-10.8 fL Neutrophils (%) (Auto) 72.8 37.0-80.0 % Lymphocytes (%) (Auto) 17.4 10.0-50.0 % Monocytes (%) (Auto) 8.6 0.0-12.0 % Eosinophils (%) (Auto) 0.7 0.0-7.0 % Basophils (%) (Auto) 0.5 0.0-2.0 % Neutrophils # (Auto) 9.2 H 1.6-8.6 10 ^3/uL Lymphocytes # (Auto) 2.2 0.4-5.4 10 ^3/uL Monocytes # (Auto) 1.1 0-1.3 10 ^3/uL Eosinophils # (Auto) 0.1 0-0.8 10 ^3/uL Basophils # (Auto) 0.1 0-0.2 10 ^3/uL Nucleated Red Blood Cells 0.1 % Prothrombin Time 9.4 9.3-11.8 sec Prothrombin Time INR 0.88 L 0.9-1.15 Activated Partial Thromboplast Time 26.3 24.5-34.5 SEC Sodium Level 138 136-145 mmol/L Potassium Level 3.8 3.5-5.1 mmol/L Chloride Level 108 H 98-107 mmol/L Carbon Dioxide Level 19 L 20-31 mmol/L Anion Gap 11 5-15 Blood Urea Nitrogen 9 9-23 mg/dL Creatinine 0.47 L 0.550-1.02 mg/dL Glomerular Filtration Rate Calc 131 >90 mL/min BUN/Creatinine Ratio 19.1 10.0-20.0 Serum Glucose 102 74-106 mg/dL Uric Acid 3.8 3.1-7.8 mg/dL Calcium Level 9.0 8.7-10.4 mg/dL Total Bilirubin 0.4 0.2-1.0 mg/dL Aspartate Amino Transferase (AST) 16 <34 U/L Alanine Aminotransferase (ALT) 12 7-40 U/L Alkaline Phosphatase 147 H 46-116 U/L Total Protein 6.4 5.7-8.2 g/dL Albumin 3.8 3.2-4.8 g/dL Treponema pallidum Antibody Non-reactive Negative Hepatitis C Antibody Negative Negative Urine Color Light-yellow Yellow Urine Clarity Turbid H Clear Urine pH 6.5 5.0-9.0 Urine Specific [place] 1.019 1.001-1.035 Urine Protein Trace H Negative Urine Ketones Negative Negative Urine Blood Negative Negative /uL Urine Nitrite Negative Negative Urine Bilirubin Negative Negative Urine Urobilinogen Normal Negative mg/dL Urine Leukocyte Esterase 1+ Negative /uL Urine RBC 3 0 - 4 /hpf Urine Microscopic WBC 6 H 0-5 /HPF Urine Squamous Epithelial Cells Mod <5 /hpf Urine Bacteria Few H None Seen /hpf Urine Hyaline Casts Few 0 - 2 /lpf Urine Mucus Few None Seen Urine Glucose Normal Normal mg/dL Assessment Assessment IUP at 38w 4d Oligohydramnios Pre Eclampsia IOL Category II FHR Tracing Plan Plan Amniotomy - clear, scant Continue EFM Intrauterine resuscitation PRN Frequent position change to facilitate labor & descent Supportive care Anticipate Plan discussed with: Patient, Spouse Visit Coding OBGYN Date of Service: Aug 09, 2024 Billing Provider: BORIS STEVENS CNM DIRECTOR OF VITAL STATISTICS Common Visit Codes: [id number] INP/OBS CARE(HIGH) DIRECTOR OF VITAL STATISTICS Procedure Codes: 47285-51- NON-STRESS TEST BORIS STEVENS CNM Aug 09, 2024 05:29
[2024-08-09] MEDS: CARBOPROST TROMETHAMINE 250 MCG/1ML VIAL IM ONE ×2 (05:59→06:34)
[2024-08-09] MEDS: ONDANSETRON HCL 4 MG/2 ML VIAL ONE (06:00)
[2024-08-09] MEDS: LACT. RINGERS/OXYTOCIN 20UNITS 500 ML IV ONE ×2 (06:06→06:30)
[2024-08-09] MEDS: DIPHENOXYLATE W/ATROPINE 2.5 MG TAB ONE (06:33)
[2024-08-09] MEDS: DIPHENOXYLATE W/ATROPINE 2.5 MG TAB PO ONE (06:34)
[2024-08-09] MEDS: ONDANSETRON HCL 4 MG/2 ML VIAL IV ONE (06:34)
[2024-08-09] MEDS ORDERED: ONDANSETRON ODT 4 MG TAB PO PRN (06:45)
[2024-08-09] MEDS ORDERED: hydrALAZINE HCL 20 MG/ML VL IV PRN (07:15)
[2024-08-09] MEDS: LORazepam 2MG/ML-1ML VIAL IV ONE (07:15)
--- NOTE | 2024-08-09 07:27 | LDN2 ---
Labor and Delivery Note Date 08/09/24 Age 28 4 Para 2 AB 1 EDC 08/19/24 EGA 38w 4d Diagnosis IUP at 38w 4d Oligohydramnios Pre Eclampsia IOL for Above Vaginal Delivery: VTX Vacuum Assisted: No Placenta: Spontaneous Sex: Male Weight 6Lbs 7oz (2915g) Apgars 8 @ one minute & 9 at five minutes of life Nuchal Cord Transected: No (Reduced) Amniotic Fluid: Clear Anesthesia Labor Epidural Episiotomy: No Extension: Yes (1 degree Vaginal laceration) Repaired with 3-0 Vicryl EBL 350mL Labs Blood Bank 08/08/24 19:09: Blood Type A POSITIVE Complications None Conditions Mother and baby Stable Aircraft Engine Assembler Paxton Comments/Significant Med Raphael At 05:38, 28yo, now delivered a viable Male by w/ score 8 at one & 9 @ five minutes of life. MAYCOL position Infant placed skin to skin on pts chest. Cord clamped and cut after pulsation ceased. Cord blood sent. Intact 3-vessel cord placenta delivered spontaneously, Roberth. Pitocin IV bolus started. Placenta sent to pathology. Patient had labor epidural anesthesia. First degree vaginal laceration noted and was repaired with 3-0 Vicryl suture. Cervix/vagina inspected via SSE. Cervix intact. Rectal mucosa and sphincter intact. Rectal exam performed, WNL, not involved. Fundus at U, firm, midline, and light lochia. QBL 350ml. VSS. Count correct x2. Patient to care and baby to couplet care, both stable. Visit Coding OBGYN Date of Service: Aug 09, 2024 Billing Provider: BORIS STEVENS CNM DEPLOYMENT MANAGER Common Visit Codes: [id number] INP/OBS CARE(HIGH) DEPLOYMENT MANAGER Procedure Codes: 06837-97- NON-STRESS TEST, 24509-FBW DELIVERY ONLY BORIS STEVENS CNM Aug 09, 2024 07:27
[2024-08-09] MEDS: MAGNESIUM SULFATE 100 ML IV ONE (07:53)
[2024-08-09] MEDS: MAGNESIUM SULFATE 40MG/ML 1,000 ML IV SCH (08:11)
[2024-08-09 08:28] LABS: Basophils # (auto) 0 10 ^3/uL (0-0.2); Basophils % (auto) 0.2 % (0.0-2.0); Eosinophils # (auto) 0.1 10 ^3/uL (0-0.8); Eosinophils % (auto) 0.3 % (0.0-7.0); Hematocrit 35.6 % (36.0-46.0); Hemoglobin 11.5 g/dL (12.2-16.2); Lymphocytes # (auto) 2.2 10 ^3/uL (0.4-5.4); Lymphocytes % (auto) 10.3 % (10.0-50.0); Mean Corpuscular Hemoglobin 24.7 pg (28.0-32.0); Mean Corpuscular Hgb Conc. 32.2 g/dL (32.0-36.0); Mean Corpuscular Volume 76.8 fL (80.0-100.0); Monocytes # (auto) 1.1 10 ^3/uL (0-1.3); Neutrophils # (auto) 17.9 10 ^3/uL (1.6-8.6); Neutrophils % (auto) 84.2 % (37.0-80.0); Nucleated Red Blood Cells % 0.1 %; Platelet Count (auto) 280 10^3/uL (140-450); Red Blood Cells 4.64 10^6/uL (4.0-5.20); Red Cell Distribution Width 17.4 % (11.8-14.3); White Blood Cell 21.2 10^3/uL (4.4-10.8)
[2024-08-09 08:49] LABS: Alanine Aminotransferase 10 U/L (7-40); Albumin 3.6 g/dL (3.2-4.8); Anion Gap 12 (5-15); Aspartate Aminotransferase 16 U/L (<34); BUN/Creatinine Ratio 17.1 (10.0-20.0); Glucose 83 mg/dL (74-106); Potassium 3.9 mmol/L (3.5-5.1); Sodium 138 mmol/L (136-145); Total Protein 6.1 g/dL (5.7-8.2); Uric Acid 3.9 mg/dL (3.1-7.8)
[2024-08-09 08:50] LABS: Alkaline Phosphatase 135 U/L (46-116); Bilirubin, Total 0.6 mg/dL (0.2-1.0); Blood Urea Nitrogen 7 mg/dL (9-23); Calcium 8.5 mg/dL (8.7-10.4); Carbon Dioxide 18 mmol/L (20-31); Chloride 108 mmol/L (98-107); Magnesium 1.5 mg/dL (1.6-2.6)
[2024-08-09 09:02] LABS: INR 0.9 (0.9-1.15); Partial Thromboplastin Time 26.1 SEC (24.5-34.5); Prothrombin Time 9.6 sec (9.3-11.8)
[2024-08-09 11:33] LABS: Urine Bacteria None Seen /hpf (None Seen)
[2024-08-09] MEDS ORDERED: TRANEXAMIC ACID 1,000 mg/10ml INJ VIAL IV ONE (11:44)
[2024-08-09 11:48] LABS: Urine Blood TRACE /uL (Negative); Urine Clarity Clear (Clear); Urine Color Colorless (Yellow); Urine Mucus FEW (None Seen); Urine Protein, UAD Negative (Negative); Urine Specific Gravity 1.005 (1.001-1.035); Urine Squamous Epithelial Cell None Seen /hpf (<5); Urine Urobilinogen Normal (Negative); Urine WBC < 1 /HPF (0-5)
[2024-08-09 11:56] LABS: Urine Protein/Creatinine Ratio 0.48
[2024-08-09 11:58] LABS: Protein, Urine < 6.0 mg/dL (1-14)
[2024-08-09] MEDS: IBUPROFEN 600 MG TAB PO PRN (12:10)
[2024-08-09] MEDS: LACTATED RINGER'S 1,000 ML IV SCH (16:31)
[2024-08-09] MEDS: ACETAMINOPHEN 325 MG TAB PO PRN (21:25)
[2024-08-10 03:00] VITALS: BP 99/69; PULSE 82; RESP 16; TEMP 97.7; O2SAT 97
[2024-08-10 06:54] VITALS: BP 111/59; PULSE 83; RESP 17; TEMP 97.6
--- NOTE | 2024-08-10 07:26 | DVHPN2 ---
Chief Complaints Patient reports: No new complaints, Feels better Nursing reports: No new complaints, No abdominal pain, No chest pain, No dizziness, No cough Objective Vitals Vital Signs Date Time Temp Pulse Resp B/P (MAP) Pulse Ox O2 Delivery O2 Flow Rate FiO2 08/10/24 06:54 Room Air 08/10/24 06:54 97.6 83 17 111/59 (76) 97.6 08/10/24 03:00 97 Medications Current Medications Medications (Trade) Dose Ordered Sig/Maria Victoria Route PRN Reason Start Time Stop Time Status Last Admin Lactated Ringer's 1,000 ml @ 75 mls/hr [id number] IV 08/09/24 16:30 08/09/24 16:31 General: Normal Head/Eyes: Normal ENT: Normal Lungs: Normal Cardiovascular: Normal Heart Murmur: no murmur Abdominal: Normal Musculoskeletal: Normal Extremities: Normal Skin: Normal Studies Laboratory Tests 08/09/24 07:42 Test 08/09/24 07:42 Range/Units Serum Glucose 83 74-106 mg/dL Ass/Plan Assessment POD #1 pih s/p Plan see dc summary see dc orders KILO GRAHAM DO Aug 10, 2024 07:26
--- NOTE | 2024-08-10 07:28 | DVHDS2 ---
Physician Discharge Progress N Final Diagnosis: pih Operations or Procedures: Operations or Procedures none Consultations: Consultations none Condition on Discharge: Good Disposition: Home Discharge Instructions: Diet: Regular Activity: Light activity (pelvic rest 6 weeks) Medications: none Follow Up Care: Discharge Statement: "Patient was advised to return to the ER or call 911 if any headaches, dizziness, shortness of breath, chest pain, abdominal pain, bleeding, fevers, or worsening of medical condition. Patient was counseled about treatment plan, medications, possible side effects, patientverbalized understanding. All questions were answered to the best of my ability. This discharge took greater then 30 minutes in planning, reviewing documentation, counseling the patient, and discussing with other team members." Visit Coding OBGYN Date of Service: Aug 10, 2024 Billing Provider: KILO GRAHAM DO INDUSTRIAL EDUCATION INSTRUCTOR Common Visit Codes: 18007-VUC/OBS SAME DATE (LOW), 40267-WTP/OBS SAME DATE (MOD), 69032-POK/OBS SAME DATE (HIGH) INDUSTRIAL EDUCATION INSTRUCTOR Procedure Codes: [id number] DELIVERY ONLY KILO GRAHAM DO Aug 10, 2024 07:28
[2024-08-10 11:30] VITALS: BP 110/62; PULSE 85; RESP 18; TEMP 98
== END 2024-08-10 12:44 | disposition home or self-care (01) | DRG 560 ==
LOC: LDRP 18:54
PROVIDERS: ADMIT Obstetrics & Gynecology; ATTEND Obstetrics & Gynecology
PROC: 10E0XZZ Delivery of Products of Conception, External Approach (ICD-10-PCS; principal; 2024-08-09)
PROC: 3E0R3BZ Introduction of Anesthetic Agent into Spinal Canal, Percutaneous Approach (ICD-10-PCS; 2024-08-09)
PROC: 00HU33Z Insertion of Infusion Device into Spinal Canal, Percutaneous Approach (ICD-10-PCS; 2024-08-09)
PROC: 0HQ9XZZ Repair Perineum Skin, External Approach (ICD-10-PCS; 2024-08-09)
DX: O14.94 Unspecified pre-eclampsia, complicating childbirth (principal); Z37.0 Single live birth; O41.03X0 Oligohydramnios, third trimester, not applicable or unspecified; Z3A.38 38 weeks gestation of pregnancy; O70.0 First degree perineal laceration during delivery; Z88.8 Allergy status to other drugs, medicaments and biological substances; O13.4 Gestational [pregnancy-induced] hypertension without significant proteinuria, complicating childbirth
CPT/HCPCS: 36415; 59025; 59409; 62282; 80053; 80307; 81001; 82570; 83735; 84156; 84550; 85025; 85379; 85610; 85730; 86780; 86803; 86850; 86900; 86901; 94760; 94762; 96360; 96361; 96365; 96366; 96372; 96374; G0378; J2405; J2590